=== PATIENT | male | born 1965 | race African-American/Black ===

== ENCOUNTER 2016-10-21 00:41 | Emergency (ER) | payer BC ==
--- NOTE | 2016-10-21 01:35 | ED ---
SOB HPI - General Chief Complaint: Shortness of Breath Stated Complaint: upper respiratory Time Seen by Provider: 10/21/16 01:00 Source: patient Mode of arrival: ambulatory Limitations: no limitations - Related Data Home Medications Medication Instructions Recorded Confirmed No Known Home Medications [No 10/21/16 10/21/16 Known Home Medications] Allergies Allergy/AdvReac Type Severity Reaction Status Date / Time No Known Allergies Allergy Verified 10/21/16 00:54 Review of Systems ROS Statement: Those systems with pertinent positive or pertinent negative responses have been documented in the HPI. ROS Other: All systems not noted in ROS Statement are negative. Past Medical History Past Medical History: Hyperlipidemia History of Any Multi-Drug Resistant Organisms: None Reported Past Surgical History: Hernia Repair Past Psychological History: No Psychological Hx Reported Smoking Status: Never smoker Past Alcohol Use History: Occasional Past Drug Use History: None Reported General Exam Limitations: no limitations Course Vital Signs 10/21/16 00:54 Temperature 98.1 F Pulse Rate 100 Respiratory 20 Rate Blood Pressure 206/118 O2 Sat by Pulse 97 Oximetry Medical Decision Making - Lab Data Result diagrams: 10/21/16 02:10 10/21/16 02:10 Lab Results 10/21/16 10/21/16 10/21/16 Range/Units 02:10 02:10 02:10 WBC 5.5 (3.8-10.6) k/uL RBC 3.60 L (4.30-5.90) m/uL Hgb 11.7 L (13.0-17.5) gm/dL Hct 35.8 L (39.0-53.0) % MCV 99.4 (80.0-100.0) fL MCH 32.5 (25.0-35.0) pg MCHC 32.7 (31.0-37.0) g/dL RDW 13.9 (11.5-15.5) % Plt Count 202 (150-450) k/uL Neutrophils % 46 % Lymphocytes % 40 % Monocytes % 5 % Eosinophils % 4 % Basophils % 2 % Neutrophils # 2.5 (1.3-7.7) k/uL Lymphocytes # 2.2 (1.0-4.8) k/uL Monocytes # 0.3 (0-1.0) k/uL Eosinophils # 0.2 (0-0.7) k/uL Basophils # 0.1 (0-0.2) k/uL PT (9.0-12.0) sec INR (<1.1) APTT (22.0-30.0) sec D-Dimer (<0.60) mg/L FEU Sodium 140 (137-145) mmol/L Potassium 3.9 (3.5-5.1) mmol/L Chloride 110 H (98-107) mmol/L Carbon Dioxide 24 (22-30) mmol/L Anion Gap 6 mmol/L BUN 19 (9-20) mg/dL Creatinine 1.10 (0.66-1.25) mg/dL Est GFR (MDRD) Af Amer >60 (>60 ml/min/1.73 sqM) Est GFR (MDRD) Non-Af >60 (>60 ml/min/1.73 sqM) Glucose 93 (74-99) mg/dL Calcium 8.9 (8.4-10.2) mg/dL Total Bilirubin 0.3 (0.2-1.3) mg/dL AST 46 (17-59) U/L ALT 78 H (21-72) U/L Alkaline Phosphatase 72 (38-126) U/L Total Creatine Kinase 194 H (55-170) U/L CK-MB (CK-2) 1.3 (0.0-2.4) ng/mL CK-MB (CK-2) Rel Index 0.7 Troponin I <0.012 (0.000-0.034) ng/mL Total Protein 6.5 (6.3-8.2) g/dL Albumin 3.4 L (3.5-5.0) g/dL 10/21/16 Range/Units 02:10 WBC (3.8-10.6) k/uL RBC (4.30-5.90) m/uL Hgb (13.0-17.5) gm/dL Hct (39.0-53.0) % MCV (80.0-100.0) fL MCH (25.0-35.0) pg MCHC (31.0-37.0) g/dL RDW (11.5-15.5) % Plt Count (150-450) k/uL Neutrophils % % Lymphocytes % % Monocytes % % Eosinophils % % Basophils % % Neutrophils # (1.3-7.7) k/uL Lymphocytes # (1.0-4.8) k/uL Monocytes # (0-1.0) k/uL Eosinophils # (0-0.7) k/uL Basophils # (0-0.2) k/uL PT 10.6 (9.0-12.0) sec INR 1.0 (<1.1) APTT 22.7 (22.0-30.0) sec D-Dimer 1.20 H (<0.60) mg/L FEU Sodium (137-145) mmol/L Potassium (3.5-5.1) mmol/L Chloride (98-107) mmol/L Carbon Dioxide (22-30) mmol/L Anion Gap mmol/L BUN (9-20) mg/dL Creatinine (0.66-1.25) mg/dL Est GFR (MDRD) Af Amer (>60 ml/min/1.73 sqM) Est GFR (MDRD) Non-Af (>60 ml/min/1.73 sqM) Glucose (74-99) mg/dL Calcium (8.4-10.2) mg/dL Total Bilirubin (0.2-1.3) mg/dL AST (17-59) U/L ALT (21-72) U/L Alkaline Phosphatase (38-126) U/L Total Creatine Kinase (55-170) U/L CK-MB (CK-2) (0.0-2.4) ng/mL CK-MB (CK-2) Rel Index Troponin I (0.000-0.034) ng/mL Total Protein (6.3-8.2) g/dL Albumin (3.5-5.0) g/dL - EKG Data -: EKG Interpreted by [facility] EKG shows normal: sinus rhythm, axis (Normal), intervals (Normal), ST-T waves ( Normal) Rate: normal (Rate 58 bpm) Interpretation: [facility] Disposition Clinical Impression: Pulmonary nodule seen on imaging study Disposition: HOME SELF-CARE Condition: Fair Instructions: Pulmonary Nodules (ED) Referrals: Jose Beckford MD [Primary Care Provider] - 1-2 days Kyle Guzmán MD [STAFF PHYSICIAN] - 1-2 days
[2016-10-21 02:25] LABS: Basophils # (A) 0.1 k/uL (0-0.2); Basophils % (A) 2 %; CH 32.6; Eosinophils # (A) 0.2 k/uL (0-0.7); Eosinophils % (A) 4 %; HCT 35.8 % (39.0-53.0); HDW 2.74; HGB 11.7 gm/dL (13.0-17.5); Luc # (Auto) 0.16; Luc % (Auto) 3; Lymphocytes # (A) 2.2 k/uL (1.0-4.8); Lymphocytes % (A) 40 %; MCH 32.5 pg (25.0-35.0); MCHC 32.7 g/dL (31.0-37.0); MCV 99.4 fL (80.0-100.0); Mean Platelet Volume 7.3; Monocytes # (A) 0.3 k/uL (0-1.0); Monocytes % (A) 5 %; Neutrophils # (A) 2.5 k/uL (1.3-7.7); Neutrophils % (A) 46 %; RDW 13.9 % (11.5-15.5); WBC 5.5 k/uL (3.8-10.6); WBC (Perox) 5.52
[2016-10-21 02:37] LABS: Partial Thromboplastin Time 22.7 sec (22.0-30.0); Prothrombin Time 10.6 sec (9.0-12.0)
[2016-10-21 02:39] LABS: ALT 78 U/L (21-72); AST 46 U/L (17-59); Alkaline Phosphatase 72 U/L (38-126); Anion Gap 6 mmol/L; Blood Urea Nitrogen 19 mg/dL (9-20); Calcium 8.9 mg/dL (8.4-10.2); Carbon Dioxide 24 mmol/L (22-30); Chloride 110 mmol/L (98-107); Glucose 93 mg/dL (74-99); Non-African American GFR(MDRD) >60 (>60 ml/min/1.73 sqM); Potassium 3.9 mmol/L (3.5-5.1); Sodium 140 mmol/L (137-145); Total Bilirubin 0.3 mg/dL (0.2-1.3); Total Protein 6.5 g/dL (6.3-8.2)
[2016-10-21 02:45] LABS: Creatine Kinase 194 U/L (55-170)
[2016-10-21 02:58] LABS: Creatine Kinase MB 1.3 ng/mL (0.0-2.4); Troponin I <0.012 ng/mL (0.000-0.034)
[2016-10-21] MEDS ORDERED: RX INFO: IV CONTRAST WAS GIVEN 1 EACH MISC MISCELLANE PRN (03:14)
--- NOTE | 2016-10-21 03:20 | XR ---
EXAM: XR Chest, 2 Views CLINICAL HISTORY: Reason: difficulty breathing TECHNIQUE: Frontal and lateral views of the chest. COMPARISON: No relevant prior studies available. FINDINGS: Lungs: Bilateral perihilar opacities. Prominent pulmonary vascularity. Pleural space: Unremarkable. No pneumothorax. Heart: Unremarkable. Mediastinum: Mildly prominent mediastinum, may be related to tortuous aorta. Bones/joints: Unremarkable. IMPRESSION: 1. Bilateral perihilar opacities. Correlate clinically for inflammatory/infectious process. 2. Mildly prominent mediastinum, may be related to tortuous aorta. Compare to prior studies if available.
--- NOTE | 2016-10-21 04:21 | CT ---
EXAM: CT Angiography Chest With Intravenous Contrast CLINICAL HISTORY: Reason: Pain TECHNIQUE: Axial computed tomographic angiography images of the chest with intravenous contrast using pulmonary embolism protocol. CTDI is 3.0, 93. 9, 7.0 mGy and DLP is 286.9 mGy-cm This CT exam was performed using one or more of the following dose reduction techniques: automated exposure control, adjustment of the mA and/or kV according to patient size, and/or use of iterative reconstruction technique. MIP reconstructed images were created and reviewed. COMPARISON: No relevant prior studies available. FINDINGS: Pulmonary arteries: Unremarkable. No pulmonary embolism. Aorta: No aortic aneurysm or dissection. Lungs: Multiple small pulmonary nodules, the majority in the right middle lobe measuring up to 7 mm, cannot exclude possibility of neoplastic process. Bilateral peribronchial thickening. Areas of septal thickening can be seen with pulmonary edema or malignant etiology. Minor atelectatic changes. Pleural space: Trace left greater than right pleural effusions. Heart: Mild cardiomegaly. Trace pericardial fluid. Mediastinum: Small hiatal hernia. Mild esophageal wall thickening raising possibility of esophagitis. Bones/joints: No acute fracture. Soft tissues: Unremarkable. Lymph nodes: Small mediastinal and hilar lymph nodes, some of which are calcified. Other findings: IMPRESSION: 1. No evidence of pulmonary embolism or aortic dissection. 2. Multiple small pulmonary nodules, the majority in the right middle lobe measuring up to 7 mm, cannot exclude possibility of neoplastic process. Correlate with history of malignancy and compare to prior studies if available. Followup as indicated per Meli Society recommendations. 3. Bilateral peribronchial thickening. Areas of septal thickening can be seen with pulmonary edema or malignant etiology. 4. Trace left greater than right pleural effusions. 5. Small hiatal hernia. Mild esophageal wall thickening raising possibility of esophagitis. 6. Mild cardiomegaly. Trace pericardial fluid.
[2016-10-21 05:23] VITALS: BP 133/73; PULSE 82; RESP 18; TEMP 98
== END 2016-10-21 05:20 | disposition home or self-care (01) ==
LOC: EC 00:41
DX: R91.8 Other nonspecific abnormal finding of lung field (principal); I51.7 Cardiomegaly; K44.9 Diaphragmatic hernia without obstruction or gangrene
CPT/HCPCS: 99285; 36415; 93005; 85379; 80053; 82550; 82553; 84484; 85025; 85610; 85730; 71020; 71275; Q9967

== ENCOUNTER 2016-10-30 12:13 | Emergency (ER) | payer BC ==
[2016-10-30 12:22] VITALS: RESP 18
[2016-10-30 12:28] LABS: Glucose,Whole Blood 81 mg/dL (75-99)
[2016-10-30] MEDS ORDERED: DIAZEPAM 5 MG/ML 2 ML SYRINGE IVP STA (12:38)
[2016-10-30] MEDS ORDERED: ONDANSETRON 4 MG/2 ML VIAL IVP STA (12:38)
[2016-10-30] MEDS ORDERED: MECLIZINE 12.5 MG TAB PO STA (12:38)
[2016-10-30] MEDS ORDERED: SODIUM CHLORIDE 0.9% 1,000 ML IV ONE (12:38)
--- NOTE | 2016-10-30 12:42 | ED ---
Dizziness HPI - General Chief Complaint: Dizziness Stated Complaint: Dizzy Time Seen by Provider: 10/30/16 12:24 Source: patient Mode of arrival: wheelchair Limitations: no limitations - History of Present Illness Initial Comments: This is a 51-year-old male with history of hyperlipidemia presents emergency department for dizziness. He states that it started this morning he's had multiple episodes. He states that it seems to be worse with turning his head to the right and he feels like the room is spinning. He has some associated nausea with it. He's never had anything like this before. His and mother have noticed that when this happens his eyes are "jumping". He denies any weakness numbness tingling in his extremities. No difficult he was speaking or dysphasia. Denies any associated chest pain or short of breath. No lightheadedness. He is going through a crash diet and has lost 11 pounds and couple of days. He did have a syncopal episode a couple of days ago because of this. He has not been eating very much recently. No other complaints. - Related Data Previous Rx's Medication Instructions Recorded Meclizine [Antivert] 25 mg PO TID PRN #21 tab 10/30/16 Allergies Allergy/AdvReac Type Severity Reaction Status Date / Time No Known Allergies Allergy Verified 10/30/16 12:55 Review of Systems ROS Statement: Those systems with pertinent positive or pertinent negative responses have been documented in the HPI. ROS Other: All systems not noted in ROS Statement are negative. Past Medical History Past Medical History: Hyperlipidemia History of Any Multi-Drug Resistant Organisms: None Reported Past Surgical History: Hernia Repair Past Psychological History: No Psychological Hx Reported Smoking Status: Never smoker Past Alcohol Use History: Occasional Past Drug Use History: None Reported General Exam - General Exam Comments Initial Comments: Constitutional: Awake alert Appears comfortable Head: Normocephalic atraumatic Eyes: no conjunctival injection No scleral icterus EOMI, pupils are 3 mm reactive bilaterally, there is a left beating nystagmus with rightward head movement, the patient has a hints exam consistent with a peripheral cause of vertigo Neck: No JVD Supple Heart: Regular rate rhythm normal S1-S2 no murmurs Lungs: Clear to auscultation bilaterally No wheezing No rales Abdomen: Soft nondistended nontender Extremities: Non edematous DP pulses intact Radial pulses intact Neuro: A&Ox3 cranial nerves II through XII are grossly intact, 5 out of 5 strength in upper and lower extremities bilaterally, no ataxia Psych: Appropriate mood and affect Limitations: no limitations Course Vital Signs 10/30/16 12:19 Temperature 98.5 F Pulse Rate 75 Respiratory 18 Rate Blood Pressure 171/95 O2 Sat by Pulse 99 Oximetry EKG Findings - EKG Comments: EKG Findings:: EKG showing normal sinus rhythm with a rate of 76. No abnormal ST segment changes or T-wave inversions. QTC is 463. Other intervals are normal. No ectopy. Medical Decision Making - Medical Decision Making This is a 51-year-old male presents emergency department for dizziness. He was found on examination to have a peripheral cause of vertigo. Blood work was reviewed and unremarkable. EKG was normal. Patient improved after medications and able to ambulate around the room without difficulty. Will be sent home on Antivert. He has an appointment with his doctor tomorrow to get rechecked. Can return if his symptoms worsen. - Lab Data Result diagrams: 10/30/16 12:48 10/30/16 12:48 Lab Results 10/30/16 10/30/16 10/30/16 Range/Units 12:26 12:48 12:48 WBC 4.2 (3.8-10.6) k/uL RBC 4.17 L (4.30-5.90) m/uL Hgb 13.6 (13.0-17.5) gm/dL Hct 41.4 (39.0-53.0) % MCV 99.3 (80.0-100.0) fL MCH 32.7 (25.0-35.0) pg MCHC 32.9 (31.0-37.0) g/dL RDW 13.5 (11.5-15.5) % Plt Count 233 (150-450) k/uL Sodium 142 (137-145) mmol/L Potassium 3.9 (3.5-5.1) mmol/L Chloride 106 (98-107) mmol/L Carbon Dioxide 27 (22-30) mmol/L Anion Gap 9 mmol/L BUN 17 (9-20) mg/dL Creatinine 0.84 (0.66-1.25) mg/dL Est GFR (MDRD) Af Amer >60 (>60 ml/min/1.73 sqM) Est GFR (MDRD) Non-Af >60 (>60 ml/min/1.73 sqM) Glucose 91 (74-99) mg/dL POC Glucose (mg/dL) 81 (75-99) mg/dL POC Glu [employer] Supervisor ID [address] Calcium 9.3 (8.4-10.2) mg/dL Total Bilirubin 0.7 (0.2-1.3) mg/dL AST 24 (17-59) U/L ALT 50 (21-72) U/L Alkaline Phosphatase 86 (38-126) U/L Total Protein 7.7 (6.3-8.2) g/dL Albumin 4.0 (3.5-5.0) g/dL Disposition Clinical Impression: Vertigo Disposition: HOME SELF-CARE Condition: Stable Instructions: Vertigo (ED), Benign Paroxysmal Positional Vertigo (ED) Prescriptions: Meclizine [Antivert] 25 mg PO TID PRN #21 tab PRN Reason: dizziness Referrals: Jose Beckford MD [Primary Care Provider] - 1-2 days
[2016-10-30 13:12] LABS: Aty Lym Flag Slight; CH 32.7; CHCM 33.1; HCT 41.4 % (39.0-53.0); HDW 2.62; HGB 13.6 gm/dL (13.0-17.5); MCH 32.7 pg (25.0-35.0); MCHC 32.9 g/dL (31.0-37.0); MCV 99.3 fL (80.0-100.0); Mean Platelet Volume 7.4; RBC 4.17 m/uL (4.30-5.90); RDW 13.5 % (11.5-15.5); WBC 4.2 k/uL (3.8-10.6)
[2016-10-30 13:16] LABS: ALT 50 U/L (21-72); AST 24 U/L (17-59); Alkaline Phosphatase 86 U/L (38-126); Anion Gap 9 mmol/L; Blood Urea Nitrogen 17 mg/dL (9-20); Calcium 9.3 mg/dL (8.4-10.2); Carbon Dioxide 27 mmol/L (22-30); Chloride 106 mmol/L (98-107); Glucose 91 mg/dL (74-99); Non-African American GFR(MDRD) >60 (>60 ml/min/1.73 sqM); Potassium 3.9 mmol/L (3.5-5.1); Sodium 142 mmol/L (137-145); Total Bilirubin 0.7 mg/dL (0.2-1.3); Total Protein 7.7 g/dL (6.3-8.2)
[2016-10-30 13:35] LABS: Add Differential Manual Differential
[2016-10-30 13:45] LABS: Nucleated Red Blood Cells 0 /100 WBC (0-0); Total Cells Counted 200
[2016-10-30 13:46] LABS: RBC Morphology Normal
[2016-10-30 14:15] VITALS: BP 159/85; PULSE 73; TEMP 98.6
== END 2016-10-30 13:55 | disposition home or self-care (01) ==
LOC: EC 12:13
DX: R42 Dizziness and giddiness (principal); R11.0 Nausea
CPT/HCPCS: 99284; 96374; 96375; 96361; 36415; 93005; 80053; 85025; J3360; J2405

== ENCOUNTER → 2017-01-09 | Outpatient (CLI) | payer BC ==
[2017-01-09 12:25] LABS: Follicle Stimulating Hormone 32.7 mIU/mL (1.6-9.7)
== END | disposition home or self-care (01) ==
LOC: LABWHC1 08:46
PROVIDERS: ATTEND Internal Medicine Endocrinology, Diabetes & Metabolism
DX: E22.1 Hyperprolactinemia (principal)
CPT/HCPCS: 36415; 82024; 82533; 83001; 83002; 84146; 84439; 84443

== ENCOUNTER → 2017-01-14 | Outpatient (CLI) | payer BC ==
--- NOTE | 2017-01-14 09:03 | MR ---
EXAMINATION TYPE: MR brain wo/w con DATE OF EXAM: 01/14/2017 COMPARISON: NONE HISTORY: Headaches, elevated prolactin level TECHNIQUE: Multiplanar, multisequence images of the brain and brainstem is performed without and with IV contras t, utilizing 18 mL intravenous MultiHance . FINDINGS: Diffusion weighted images demonstrate no evidence of a recent infarct or other diffusion ab normality. There is no worrisome extra-axial fluid collection. The ventricular system and cisternal spaces are normal in size and appearance. The brain volume is age appropriate. There are few scatte red foci of T2 hyperintensity seen throughout the white matter bilaterally. Less than 7 lesions are p resent all measuring 3 mm or smaller in size. Midline structures demonstrate normal morphology. No large sellar mass suggest macroadenomas present . Pituitary stalk shows normal enhancement in the midline. The craniocervical junction appears within normal limits. Post contrast images demonstrate no abnormal enhancement. The dural venous sinuses a ppear patent. The visualized sinuses are clear and the globes are intact. IMPRESSION: Minimal nonspecific white matter changes presumed on basis of product of chronic small ve ssel ischemic change in patient of this age otherwise unremarkable study.
== END | disposition home or self-care (01) ==
LOC: RADMRIMAIN 08:03
PROVIDERS: ATTEND Family Medicine
DX: R90.82 White matter disease, unspecified (principal)
CPT/HCPCS: 70553; A9577

== ENCOUNTER 2020-05-19 14:45 | Emergency (ER) | payer BC ==
[2020-05-19] MEDS ORDERED: ACETAMINOPHEN TAB 500 MG TAB PO STA (15:14)
--- NOTE | 2020-05-19 15:54 | ED ---
Fever HPI - General Chief Complaint: Fever Stated Complaint: Diarrhea/cough/fever Time Seen by Provider: 05/19/20 15:05 Source: patient Mode of arrival: ambulatory Limitations: no limitations - History of Present Illness Initial Comments: Patient is a 54-year-old male presenting to the emergency Department with complaints of cough, congestion and fever for the last 3 days. Patient states his fever has been running from 99-101. He states his cough is dry, little phlegm production, he feels short of breath at times when he is coughing but not at rest. Eyes any chest pain, abdominal pain. He does get intermittent nausea but no vomiting. He's also had diarrhea for the last 3 days. He denies taking any Tylenol or Motrin yet today. He denies being on any medications. He denies history of asthma or COPD, he is a nonsmoker. He has no further complaints at this time. Upon arrival to the ER, his temperature is 99.8, pulse 104, rest of vitals are normal. - Related Data Previous Rx's Medication Instructions Recorded Meclizine [Antivert] 25 mg PO TID PRN #21 tab 10/30/16 Allergies Allergy/AdvReac Type Severity Reaction Status Date / Time No Known Allergies Allergy Verified 05/19/20 14:55 Review of Systems ROS Statement: Those systems with pertinent positive or pertinent negative responses have been documented in the HPI. ROS Other: All systems not noted in ROS Statement are negative. Past Medical History Past Medical History: Hyperlipidemia, Hypertension History of Any Multi-Drug Resistant Organisms: None Reported Past Surgical History: Hernia Repair Past Psychological History: No Psychological Hx Reported Smoking Status: Never smoker Past Alcohol Use History: Occasional Past Drug Use History: None Reported General Exam - General Exam Comments Initial Comments: GENERAL: Patient is well-developed and well-nourished. Patient is nontoxic and in no acute distress. HEAD: Atraumatic, normocephalic. EYES: Pupils equal round and reactive to light, extraocular movements intact, sclera anicteric, conjunctiva are normal. Eyelids were unremarkable. ENT: TMs normal, nares patent, oropharynx clear without exudates. Moist mucous membranes. NECK: Normal range of motion, supple without lymphadenopathy or JVD. LUNGS: Unlabored respirations. Breath sounds clear to auscultation bilaterally and equal. No wheezes rales or rhonchi. HEART: Regular rate and rhythm without murmurs, rubs or gallops. ABDOMEN: Soft, nontender, normoactive bowel sounds. No guarding, no rebound. No masses appreciated. : Deferred MUSCULOSKELETAL: Normal extremities with adequate strength and normal range of motion, no pitting or edema. No clubbing or cyanosis. NEUROLOGICAL: Patient is alert and oriented x 3. Motor and sensory are also intact. Cranial nerves II through XII grossly intact. Symmetrical smile. Normal speech, normal gait. PSYCH: Normal mood, normal affect. SKIN: Warm, Dry, normal turgor, no rashes or lesions noted. Limitations: no limitations Course Vital Signs 05/19/20 05/19/20 14:52 18:02 Temperature 99.8 F H 99.3 F Pulse Rate 104 H 83 Respiratory 20 18 Rate Blood Pressure 134/83 106/72 O2 Sat by Pulse 96 99 Oximetry Medical Decision Making - Medical Decision Making Patient is a 54-year-old male here for cough, low-grade fever and some mild dona rtness of breath over the past 3 days. Patient did arrive mildly febrile 99.8, pulse is 104, 96% on room air. Patient looks very well, in no acute distress. Labs show a normal white count, d-dimer was slightly elevated 0.84, LDH was 1098, CRP is 16, Covid was detected, flu is negative. EKG shows no acute process, chest x-ray shows a developing left mid lower lung acute infiltrate suspected. I did do a CTA of the chest secondary to elevated d-dimer, this shows groundglass opacities of the lower lobes, no evidence for acute PE. Patient has been resting completely ER, his vital signs remained stable, his fever did improve with the Tylenol. Patient is stable for discharge at this time. I did review isolation precautions, self quarantine at home. If symptoms progress, difficulty breathing, shortness of breath, patient needs to return to the ER, he is in agreement with this plan of care. He can continue with the Tylenol at home for body aches or fever. Continue to increase fluid intake. Patient will follow up with his PCP. Case discussed with Dr. Drew. - Lab Data Result diagrams: 05/19/20 15:21 05/19/20 15:21 Lab Results 11/26/20 11/26/20 11/26/20 Range/Units 15:21 15:21 15:21 WBC 3.7 L (3.8-10.6) k/uL RBC 4.52 (4.30-5.90) m/uL Hgb 14.8 (13.0-17.5) gm/dL Hct 42.6 (39.0-53.0) % MCV 94.2 (80.0-100.0) fL MCH 32.7 (25.0-35.0) pg MCHC 34.7 (31.0-37.0) g/dL RDW 12.2 (11.5-15.5) % Plt Count 148 L (150-450) k/uL MPV 7.9 Neutrophils % 66 % Lymphocytes % 27 % Monocytes % 3 % Eosinophils % 1 % Basophils % 1 % Neutrophils # 2.5 (1.3-7.7) k/uL Lymphocytes # 1.0 (1.0-4.8) k/uL Monocytes # 0.1 (0-1.0) k/uL Eosinophils # 0.0 (0-0.7) k/uL Basophils # 0.0 (0-0.2) k/uL PT 10.0 (9.0-12.0) sec INR 1.0 (<1.2) APTT 23.6 (22.0-30.0) sec D-Dimer 0.84 H (<0.60) mg/L FEU Sodium 137 (137-145) mmol/L Potassium 3.6 (3.5-5.1) mmol/L Chloride 103 (98-107) mmol/L Carbon Dioxide 28 (22-30) mmol/L Anion Gap 6 mmol/L BUN 18 (9-20) mg/dL Creatinine 1.15 (0.66-1.25) mg/dL Est GFR (CKD-EPI)AfAm 83 (>60 ml/min/1.73 sqM) Est GFR (CKD-EPI)NonAf 72 (>60 ml/min/1.73 sqM) Glucose 114 H (74-99) mg/dL Plasma Lactic Acid Edmund (0.7-2.0) mmol/L Calcium 8.7 (8.4-10.2) mg/dL Magnesium 2.2 (1.6-2.3) mg/dL Total Bilirubin 0.6 (0.2-1.3) mg/dL AST 44 (17-59) U/L ALT 32 (4-49) U/L Alkaline Phosphatase 78 (38-126) U/L Lactate Dehydrogenase 1098 H (313-618) U/L C-Reactive Protein 16.5 H (<10.0) mg/L Total Protein 7.4 (6.3-8.2) g/dL Albumin 3.7 (3.5-5.0) g/dL Coronavirus (PCR) (Not Detectd) Influenza Type A RNA (Not Detectd) Influenza Type B (PCR) (Not Detectd) 05/19/20 05/19/20 05/19/20 Range/Units 15:21 15:21 15:21 WBC (3.8-10.6) k/uL RBC (4.30-5.90) m/uL Hgb (13.0-17.5) gm/dL Hct (39.0-53.0) % MCV (80.0-100.0) fL MCH (25.0-35.0) pg MCHC (31.0-37.0) g/dL RDW (11.5-15.5) % Plt Count (150-450) k/uL MPV Neutrophils % % Lymphocytes % % Monocytes % % Eosinophils % % Basophils % % Neutrophils # (1.3-7.7) k/uL Lymphocytes # (1.0-4.8) k/uL Monocytes # (0-1.0) k/uL Eosinophils # (0-0.7) k/uL Basophils # (0-0.2) k/uL PT (9.0-12.0) sec INR (<1.2) APTT (22.0-30.0) sec D-Dimer (<0.60) mg/L FEU Sodium (137-145) mmol/L Potassium (3.5-5.1) mmol/L Chloride (98-107) mmol/L Carbon Dioxide (22-30) mmol/L Anion Gap mmol/L BUN (9-20) mg/dL Creatinine (0.66-1.25) mg/dL Est GFR (CKD-EPI)AfAm (>60 ml/min/1.73 sqM) Est GFR (CKD-EPI)NonAf (>60 ml/min/1.73 sqM) Glucose (74-99) mg/dL Plasma Lactic Acid Edmund 1.2 (0.7-2.0) mmol/L Calcium (8.4-10.2) mg/dL Magnesium (1.6-2.3) mg/dL Total Bilirubin (0.2-1.3) mg/dL AST (17-59) U/L ALT (4-49) U/L Alkaline Phosphatase (38-126) U/L Lactate Dehydrogenase (313-618) U/L C-Reactive Protein (<10.0) mg/L Total Protein (6.3-8.2) g/dL Albumin (3.5-5.0) g/dL Coronavirus (PCR) Detected A (Not Detectd) Influenza Type A RNA Not Detected (Not Detectd) Influenza Type B (PCR) Not Detected (Not Detectd) - EKG Data EKG Comments: Normal sinus rhythm, normal ECG, ventricular rate 99, KS interval 156, QT 332. No signs of acute ischemia. Disposition Clinical Impression: COVID-19 virus detected, Cough Disposition: HOME SELF-CARE Condition: Stable Instructions (If sedation given, give patient instructions): Upper Respiratory Infection (ED) Additional Instructions: Please return to the Emergency Department if symptoms worsen or any other concerns. COVID test is positive today. Continue to take Tylenol for fever or body aches. Increase water intake. Follow-up with your PCP in 1-3 days. Is patient prescribed a controlled substance at d/c from ED?: No Referrals: Jose Beckford MD [Primary Care Provider] - 1-2 days
[2020-05-19 16:03] LABS: Basophils % (A) 1 %; Eosinophils % (A) 1 %; HCT 42.6 % (39.0-53.0); HGB 14.8 gm/dL (13.0-17.5); Lymphocytes % (A) 27 %; MCH 32.7 pg (25.0-35.0); MCHC 34.7 g/dL (31.0-37.0); MCV 94.2 fL (80.0-100.0); Mean Platelet Volume 7.9; Monocytes # (A) 0.1 k/uL (0-1.0); Monocytes % (A) 3 %; Neutrophils # (A) 2.5 k/uL (1.3-7.7); Neutrophils % (A) 66 %; Platelet Count 148 k/uL (150-450); RBC 4.52 m/uL (4.30-5.90); RDW 12.2 % (11.5-15.5); WBC 3.7 k/uL (3.8-10.6)
[2020-05-19 16:11] LABS: Albumin 3.7 g/dL (3.5-5.0); C Reactive Protein 16.5 mg/L (<10.0); Calcium 8.7 mg/dL (8.4-10.2); Magnesium 2.2 mg/dL (1.6-2.3); Potassium 3.6 mmol/L (3.5-5.1); Total Bilirubin 0.6 mg/dL (0.2-1.3); Total Protein 7.4 g/dL (6.3-8.2)
[2020-05-19 16:13] LABS: Partial Thromboplastin Time 23.6 sec (22.0-30.0)
[2020-05-19 16:15] LABS: D-Dimer 0.84 mg/L FEU (<0.60)
--- NOTE | 2020-05-19 16:20 | XR ---
EXAMINATION TYPE: XR chest 1V portable DATE OF EXAM: 05/19/2020 COMPARISON: Chest x-ray September 30, 2017 HISTORY: Cough And fever. TECHNIQUE: Single AP portable frontal upright view of the chest is obtained. FINDINGS: There is chronic parenchymal change with new patchy left mid to lower basilar opacity. Rig ht lung is clear. The cardiac silhouette size remains within normal limits. Overlying EKG leads on t he current study. The osseous structures are intact. IMPRESSION: Chronic parenchymal changes with developing patchy new peripheral left mid lower lung ac sorin infiltrate suspected. Progress study advised.
--- NOTE | 2020-05-19 17:17 | CT ---
EXAMINATION TYPE: CT chest angio for PE DATE OF EXAM: 05/19/2020 COMPARISON: Chest x-ray earlier today. CTA chest October 21, 2016. HISTORY: Shortness of breath, Covid+, elevated d-dimer CT DLP: 324.5 mGycm. Automated Exposure Control for Dose Reduction was Utilized. CONTRAST: CTA scan of the thorax is performed with IV Contrast, patient injected with 78ml mL of Isovue 370, pu lmonary embolism protocol. MIP Images are created on CT scanner and reviewed. FINDINGS: LUNGS: Seen better on CT versus x-ray are multifocal groundglass opacities greatest in the lower lobe s bilaterally. No pleural effusion or pneumothorax noted bilaterally. No suspicious masses. MEDIASTINUM: There is satisfactory enhancement of the pulmonary artery and its branches, there is no CT evidence for pulmonary embolism. Satisfactory enhancement of the thoracic aorta without aneurysm or dissection. There are no greater than 1 cm mediastinal lymph nodes. Prominent enlarged right hilar 1.5 x 1.4 cm lymph node image 71. No cardiomegaly or pericardial effusion is seen. OTHER: No additional significant abnormality is seen. IMPRESSION: Multifocal groundglass opacities consistent with history of covid-19 infection. No CTA ev idence for acute pulmonary embolism.
[2020-05-19] MEDS ORDERED: DEXAMETHASONE SOD PHOSPHATE 10 MG/ML 1 ML VIAL IV STA (17:43)
[2020-05-19 18:03] VITALS: BP 106/72; PULSE 83; RESP 18; TEMP 99.3
== END 2020-05-19 18:08 | disposition home or self-care (01) ==
LOC: EC 14:45
DX: U07.1 COVID-19 (principal); R79.89 Other specified abnormal findings of blood chemistry; R91.8 Other nonspecific abnormal finding of lung field
CPT/HCPCS: 36415; 93005; 85379; 80053; 82728; 83605; 83615; 83735; 85025; 85610; 85730; 86140; 87040; 87502; 84145; 87635; 71045; 71275; 99284; 96374; J1100; Q9967

== ENCOUNTER 2021-01-13 15:00 | Emergency (ER) | payer BC ==
[2021-01-13 15:36] VITALS: TEMP 99
--- NOTE | 2021-01-13 16:47 | ED ---
Lower Extremity Injury HPI - General Chief Complaint: Extremity Injury, Lower Stated Complaint: R Leg Pain Time Seen by Provider: 01/13/21 15:58 Source: patient Mode of arrival: ambulatory Limitations: physical limitation - History of Present Illness Initial Comments: Patient is a 55-year-old male presenting to the emergency Department with complaints of pain in the back of his right knee for the past 2 days. Patient states 2 days ago, he was using a push mower and was cutting the grass, he states he probably overdid it. He states later that evening he had cramps in both of his lower calf. The next day he woke up feeling some soreness behind his right knee. He states is more in his lower hamstring area. He denies any previous surgeries or injuries to his right knee. He did not fall. He had no swelling, no redness. He has no history of DVTs. Denies any chest pain or shortness of breath. Has no further complaints at this time. - Related Data Previous Rx's Medication Instructions Recorded Meclizine [Antivert] 25 mg PO TID PRN #21 tab 10/30/16 Allergies Allergy/AdvReac Type Severity Reaction Status Date / Time No Known Allergies Allergy Verified 01/13/21 15:35 Review of Systems ROS Statement: Those systems with pertinent positive or pertinent negative responses have been documented in the HPI. ROS Other: All systems not noted in ROS Statement are negative. Past Medical History Past Medical History: Hyperlipidemia, Hypertension History of Any Multi-Drug Resistant Organisms: None Reported Past Surgical History: Hernia Repair Past Psychological History: No Psychological Hx Reported Smoking Status: Never smoker Past Alcohol Use History: Occasional Past Drug Use History: None Reported General Exam - General Exam Comments Initial Comments: GENERAL: Patient is well-developed and well-nourished. Patient is nontoxic and in no acute distress. HEAD: Atraumatic, normocephalic. EYES: Pupils equal round and reactive to light, extraocular movements intact, sclera anicteric, conjunctiva are normal. Eyelids were unremarkable. LUNGS: Unlabored respirations. Breath sounds clear to auscultation bilaterally and equal. No wheezes rales or rhonchi. HEART: Regular rate and rhythm without murmurs, rubs or gallops. ABDOMEN: Soft, nontender, normoactive bowel sounds. MUSCULOSKELETAL: Patient has some pain with palpation of the lateral distal hamstrings, he does have full active range of motion of his right knee, strength is normal. He is neurovascularly intact. No swelling, no redness. No clubbing or cyanosis. NEUROLOGICAL: Patient is alert and oriented x 3. SKIN: Warm, Dry, normal turgor, no rashes or lesions noted. Limitations: physical limitation Course Vital Signs 01/13/21 15:32 Temperature 99 F Pulse Rate 82 Respiratory 18 Rate Blood Pressure 168/88 O2 Sat by Pulse 99 Oximetry Medical Decision Making - Medical Decision Making Patient is a 55-year-old male here with severe right knee pain for the past 2 days after mowing his lawn. His exam is consistent with some mild hamstring tendinitis or possible mild hyperextension injury. Recommended ice the area, heat. He can take ibuprofen for discomfort. If symptoms persist he can follow up with orthopedics. He is in agreement with this plan of care and is stable for discharge. Case discussed with Dr. Alvarez. Disposition Clinical Impression: Right hamstring muscle strain Disposition: HOME SELF-CARE Condition: Stable Instructions (If sedation given, give patient instructions): Hamstring Injury (ED) Additional Instructions: Please return to the Emergency Department if symptoms worsen or any other concerns. Use heat and/or ice the area, ibuprofen for discomfort. If symptoms persist after one week without improvement, follow up with orthopedics as discussed. Is patient prescribed a controlled substance at d/c from ED?: No Referrals: Jose Beckford MD [Primary Care Provider] - 1-2 days Sanjuanita Sawant DO [Doctor of Osteopathic Medicine] - 1-2 days Time of Disposition: 16:46
[2021-01-13 17:17] VITALS: BP 174/88; PULSE 72; RESP 20
== END 2021-01-13 17:17 | disposition home or self-care (01) ==
LOC: EC 15:00
DX: S76.311A Strain of muscle, fascia and tendon of the posterior muscle group at thigh level, right thigh, initial encounter (principal); I10 Essential (primary) hypertension; E78.5 Hyperlipidemia, unspecified; X50.0XXA Overexertion from strenuous movement or load, initial encounter; Y93.H2 Activity, gardening and landscaping
CPT/HCPCS: 99283

== ENCOUNTER 2021-06-24 05:26 | Inpatient (IN) | payer BC ==
[2021-06-24] MEDS ORDERED: SODIUM CHLORIDE 0.9% 500 ML 500 ML IV ONE (05:58)
[2021-06-24] MEDS ORDERED: MORPHINE SULFATE 4 MG/ML SYRINGE IV STA (05:59)
[2021-06-24] MEDS ORDERED: ASPIRIN 81 MG PO STA (06:14)
[2021-06-24] MEDS ORDERED: NITROGLYCERIN SL TABS 0.4 MG TAB SUBLINGUAL STA (06:14)
--- NOTE | 2021-06-24 06:29 | XR ---
EXAMINATION TYPE: XR chest 1V portable DATE OF EXAM: 06/24/2021 COMPARISON: 05/19/2020 HISTORY: Cough and fever TECHNIQUE: Single view FINDINGS: Heart is normal. Lungs are clear of consolidation. There is some interstitial infiltrate in both lower lobes. There are chest leads. Costophrenic angles are clear. IMPRESSION: Interstitial pneumonia and both lower lobes is mostly new compared to old exam. No heart failure.
[2021-06-24 06:46] LABS: Basophils # (A) 0.1 k/uL (0-0.2); Basophils % (A) 1 %; Eosinophils # (A) 0.2 k/uL (0-0.7); Eosinophils % (A) 2 %; HCT 41.8 % (39.0-53.0); Lymphocytes # (A) 3.5 k/uL (1.0-4.8); Lymphocytes % (A) 39 %; MCH 31.9 pg (25.0-35.0); MCHC 33.5 g/dL (31.0-37.0); MCV 95.3 fL (80.0-100.0); Mean Platelet Volume 7.5; Monocytes # (A) 0.5 k/uL (0-1.0); Monocytes % (A) 5 %; Neutrophils # (A) 4.3 k/uL (1.3-7.7); Neutrophils % (A) 49 %; Platelet Count 280 k/uL (150-450); RBC 4.39 m/uL (4.30-5.90); RDW 12.2 % (11.5-15.5); WBC 8.8 k/uL (3.8-10.6)
[2021-06-24 06:59] LABS: ALT 25 U/L (4-49); AST 29 U/L (17-59); African American GFR (CKD) 88 (>60 ml/min/1.73 sqM); Albumin 3.6 g/dL (3.5-5.0); Alcohol <10 mg/dL; Alkaline Phosphatase 92 U/L (38-126); Amylase 73 U/L (30-110); Anion Gap 10 mmol/L; Blood Urea Nitrogen 20 mg/dL (9-20); Calcium 9.4 mg/dL (8.4-10.2); Carbon Dioxide 26 mmol/L (22-30); Chloride 104 mmol/L (98-107); Glucose 124 mg/dL (74-99); Lipase 49 U/L (23-300); Non-African American GFR(CKD) 76 (>60 ml/min/1.73 sqM); Potassium 3.7 mmol/L (3.5-5.1); Sodium 140 mmol/L (137-145); Total Bilirubin 0.3 mg/dL (0.2-1.3); Total Protein 7.2 g/dL (6.3-8.2)
[2021-06-24 07:01] LABS: Prothrombin Time 10.3 sec (9.0-12.0)
--- NOTE | 2021-06-24 07:01 | CT ---
EXAMINATION TYPE: CT brain wo con DATE OF EXAM: 06/24/2021 COMPARISON: None HISTORY: headache, altered mental status CT DLP: 1099.4 mGycm Automated exposure control for dose reduction was used. Ventricles have normal size. There is no mass effect or midline shift. There is no evidence of intrac ranial hemorrhage. Calvarium is intact. There is no sign of cerebral edema. Skull base is intact. IMPRESSION: Negative unenhanced head CT scan.
[2021-06-24 07:03] LABS: Partial Thromboplastin Time 17.8 sec (22.0-30.0)
[2021-06-24] MEDS ORDERED: HEPARIN SODIUM 1,000 UN/ML (10ML VL) IV ONE (07:43)
[2021-06-24] MEDS ORDERED: HEPARIN SODIUM 1,000 UN/ML (10ML VL) IV PRN (07:43)
--- NOTE | 2021-06-24 07:43 | ED ---
General Adult HPI - General Chief complaint: Altered Mental Status Stated complaint: Fall, poss seizure Time Seen by Provider: 06/24/21 05:30 Source: EMS Mode of arrival: EMS Limitations: no limitations - History of Present Illness Initial comments: 's patient is 56-year-old man brought by ambulance to have evaluation after he had fallen tonight. Patient had been in usual state of health until this evening. He had gone to celebrate [place]. The patient states that he had one beer at home for leaving, and then 2 more beers while he was out. The patient's partner then went to sleep. She heard something and went to check and it appeared he had fallen next the couch. At that point the patient was disoriented and not really able to respond well to her though he was alert. The patient complains of having moderate severity generalized headache. He also is complaining of some mild left sided chest pain. He has some associated nausea. -: minutes(s) Location: head, chest Radiation: non-radiation Quality: dull Consistency: constant Improves with: none Worsens with: none Associated Symptoms: nausea/vomiting, rash - Related Data Previous Rx's Medication Instructions Recorded Meclizine [Antivert] 25 mg PO TID PRN #21 tab 10/30/16 Allergies Allergy/AdvReac Type Severity Reaction Status Date / Time No Known Allergies Allergy Verified 01/13/21 15:35 Review of Systems ROS Statement: Those systems with pertinent positive or pertinent negative responses have been documented in the HPI. ROS Other: All systems not noted in ROS Statement are negative. Constitutional: Denies: fever, chills, weakness Respiratory: Denies: cough, dyspnea Cardiovascular: Reports: chest pain. Denies: palpitations, orthopnea, edema, syncope Gastrointestinal: Reports: nausea, vomiting. Denies: abdominal pain, diarrhea, constipation, hematemesis, melena, hematochezia Genitourinary: Denies: dysuria, hematuria Musculoskeletal: Denies: back pain Skin: Denies: rash Neurological: Reports: headache. Denies: weakness, numbness Past Medical History Past Medical History: Hyperlipidemia, Hypertension History of Any Multi-Drug Resistant Organisms: None Reported Past Surgical History: Hernia Repair Past Psychological History: No Psychological Hx Reported Smoking Status: Never smoker Past Alcohol Use History: Occasional Past Drug Use History: None Reported General Exam Limitations: no limitations General appearance: alert, in no apparent distress Head exam: Present: atraumatic, normocephalic Eye exam: Present: normal appearance. Absent: scleral icterus, conjunctival injection Neck exam: Present: normal inspection, full ROM. Absent: tenderness, meningismus Respiratory exam: Present: normal lung sounds bilaterally. Absent: respiratory distress, wheezes, rales, rhonchi, stridor, chest wall tenderness Cardiovascular Exam: Present: regular rate, normal rhythm, normal heart sounds. Absent: systolic murmur, diastolic murmur, rubs, gallop GI/Abdominal exam: Present: soft, mass. Absent: distended, tenderness, guarding, rebound Extremities exam: Present: normal inspection, normal capillary refill. Absent: pedal edema, calf tenderness Back exam: Present: normal inspection. Absent: CVA tenderness (R), CVA tenderness (L) Neurological exam: Present: alert, oriented X3. Absent: motor sensory deficit Skin exam: Present: warm, dry, intact, normal color. Absent: rash Course Vital Signs 06/24/21 05:28 Temperature 97.6 F Pulse Rate 87 Respiratory 18 Rate Blood Pressure 122/85 O2 Sat by Pulse 98 Oximetry Medical Decision Making - Medical Decision Making Patient's 56-year-old man with a brief syncopal episode, presenting here for evaluation of headache, left chest pain, and nausea/vomiting. The patient's initial ECG does show some subtle changes versus the last one from 2019. There are some mild ST elevations, leads V2, V3, which appear more suggestive of early repolarization or pericarditis. The patient's chest pain is just minimal. Case discussed with Dr. Robb from cardiology who states that he will see the patient. The patient did go for CT to confirm that there was no intracranial injury and then heparin is ordered. - Lab Data Result diagrams: 06/24/21 06:35 06/24/21 06:35 Lab Results 06/24/21 06/24/21 06/24/21 Range/Units 06:35 06:35 06:35 WBC 8.8 (3.8-10.6) k/uL RBC 4.39 (4.30-5.90) m/uL Hgb 14.0 (13.0-17.5) gm/dL Hct 41.8 (39.0-53.0) % MCV 95.3 (80.0-100.0) fL MCH 31.9 (25.0-35.0) pg MCHC 33.5 (31.0-37.0) g/dL RDW 12.2 (11.5-15.5) % Plt Count 280 (150-450) k/uL MPV 7.5 Neutrophils % 49 % Lymphocytes % 39 % Monocytes % 5 % Eosinophils % 2 % Basophils % 1 % Neutrophils # 4.3 (1.3-7.7) k/uL Lymphocytes # 3.5 (1.0-4.8) k/uL Monocytes # 0.5 (0-1.0) k/uL Eosinophils # 0.2 (0-0.7) k/uL Basophils # 0.1 (0-0.2) k/uL PT 10.3 (9.0-12.0) sec INR 1.0 (<1.2) APTT 17.8 L (22.0-30.0) sec Sodium 140 (137-145) mmol/L Potassium 3.7 (3.5-5.1) mmol/L Chloride 104 (98-107) mmol/L Carbon Dioxide 26 (22-30) mmol/L Anion Gap 10 mmol/L BUN 20 (9-20) mg/dL Creatinine 1.08 (0.66-1.25) mg/dL Est GFR (CKD-EPI)AfAm 88 (>60 ml/min/1.73 sqM) Est GFR (CKD-EPI)NonAf 76 (>60 ml/min/1.73 sqM) Glucose 124 H (74-99) mg/dL Calcium 9.4 (8.4-10.2) mg/dL Total Bilirubin 0.3 (0.2-1.3) mg/dL AST 29 (17-59) U/L ALT 25 (4-49) U/L Alkaline Phosphatase 92 (38-126) U/L Troponin I (0.000-0.034) ng/mL Total Protein 7.2 (6.3-8.2) g/dL Albumin 3.6 (3.5-5.0) g/dL Amylase 73 (30-110) U/L Lipase 49 (23-300) U/L Serum Alcohol <10 mg/dL 06/24/21 Range/Units 06:35 WBC (3.8-10.6) k/uL RBC (4.30-5.90) m/uL Hgb (13.0-17.5) gm/dL Hct (39.0-53.0) % MCV (80.0-100.0) fL MCH (25.0-35.0) pg MCHC (31.0-37.0) g/dL RDW (11.5-15.5) % Plt Count (150-450) k/uL MPV Neutrophils % % Lymphocytes % % Monocytes % % Eosinophils % % Basophils % % Neutrophils # (1.3-7.7) k/uL Lymphocytes # (1.0-4.8) k/uL Monocytes # (0-1.0) k/uL Eosinophils # (0-0.7) k/uL Basophils # (0-0.2) k/uL PT (9.0-12.0) sec INR (<1.2) APTT (22.0-30.0) sec Sodium (137-145) mmol/L Potassium (3.5-5.1) mmol/L Chloride (98-107) mmol/L Carbon Dioxide (22-30) mmol/L Anion Gap mmol/L BUN (9-20) mg/dL Creatinine (0.66-1.25) mg/dL Est GFR (CKD-EPI)AfAm (>60 ml/min/1.73 sqM) Est GFR (CKD-EPI)NonAf (>60 ml/min/1.73 sqM) Glucose (74-99) mg/dL Calcium (8.4-10.2) mg/dL Total Bilirubin (0.2-1.3) mg/dL AST (17-59) U/L ALT (4-49) U/L Alkaline Phosphatase (38-126) U/L Troponin I 0.080 H* (0.000-0.034) ng/mL Total Protein (6.3-8.2) g/dL Albumin (3.5-5.0) g/dL Amylase (30-110) U/L Lipase (23-300) U/L Serum Alcohol mg/dL - EKG Data -: EKG Interpreted by Ar EKG shows normal: sinus rhythm, axis, intervals (Normal), QRS complexes (Normal) Rate: normal (Rate 77 bpm) When compared to previous EKG there are: other Interpretation: other (ST changes suggestive of early repolarization or pericarditis which are not present on the patient's comparison ECG) Disposition Clinical Impression: Syncope, Chest pain Disposition: ADMITTED IP TO THIS HOSP Condition: Fair Referrals: Jose Beckford MD [Primary Care Provider] - 1-2 days
[2021-06-24] MEDS ORDERED: HYDROmorphone 0.5 MG/0.5 ML SYRINGE IVP STA (07:44)
[2021-06-24] MEDS: HEPARIN SOD,PORK IN 0.45% NACL 25,000 UNIT in 0.45% NACL 1 250ML.BAG IV SCH (11:30)
--- NOTE | 2021-06-24 13:39 | P.CRDCN ---
History of Present Illness History of present illness: HISTORY OF PRESENTING ILLNESS This is a pleasant 56-year-old with past medical history significant for hyperlipidemia and mild family history of coronary artery disease. He has never been seen by nursing unit manager before however states he did have some sort of diagnosis of heart failure after he had a cyst removed on his back and apparently received too much IV fluids during the procedure. He states overall he has been doing well and normally denies any chest pain, pressure, shortness breath. He does not smoke, very rare alcohol and no illicit drugs. Family history of some coronary artery disease on his mother's side. He states he was feeling well and had 1-2 beers for and then came home and was watching TV. The next thing he remembered was waking up on the floor. Family member was in the house and heard a loud thump and found patient unresponsive on the floor somewhat foaming at the mouth. No seizure activity, no loss of bladder or bowel. He apparently was somewhat more confused and then started coming back to while he was brought to the emergency department. He was still having some degree of chest discomfort and nausea which was new for him. He den ies any similar sensation in the past. He was found to have minimally elevated troponins 1 and therefore heparin drip was started. He has had no further ectopy. EKG shows early repolarization with minimal ST elevation however no reciprocal changes. Currently he is completely chest pain-free. REVIEW OF SYSTEMS At the time of my exam: CONSTITUTIONAL: Denies fever or chills. CARDIOVASCULAR: + chest pain, no shortness of breath, orthopnea, PND or palpitations. RESPIRATORY: Denies cough. GASTROINTESTINAL: Denies abdominal pain, diarrhea, constipation, nausea or vomiting. MUSCULOSKELETAL: Denies myalgias. NEUROLOGIC: Denies numbness, tingling or weakness. ENDOCRINE: Denies fatigue, weight change, polydipsia or polyurina. GENITOURINARY: Denies burning, hematuria or urgency with micturation. HEMATOLOGIC: Denies history of anemia or bleeding. PHYSICAL EXAMINATION Vital signs reviewed. CONSTITUTIONAL: No apparent distress. HEENT: Head is normocephalic. Pupils are equal, round. Sclerae anicteric. Mucous membranes of the mouth are moist. No JVD. No carotid bruit. CHEST EXAMINATION: Lungs are clear to auscultation. No chest wall tenderness is noted on palpation or with deep breathing. HEART EXAMINATION: Regular rate and rhythm. S1, S2 heard. No murmurs, gallops or rub. ABDOMEN: Soft, nontender. Positive bowel sounds. EXTREMITIES: 2+ peripheral pulses, no lower extremity edema and no calf tenderness. NEUROLOGIC EXAMINATION: Patient is awake, alert and oriented x3. ASSESSMENT 1. Syncope while seated concerning for cardiogenic source 2. Minimally elevated troponins 3. Chest pain rule out acute coronary syndrome 4. history of hyperlipidemia 5. Family history of coronary artery disease 6. Minimal diffuse ST elevations without reciprocal changes. May be early repol vs pericarditis however not typical pericarditis symptoms. PLAN Patient with some symptoms concerning for acute coronary syndrome with minimally elevated troponins. He was having some chest pain with additional syncope. Continue to monitor on telemetry. Currently chest pain-free. Trend troponins. Check 2-D echo. Continue heparin drip for now. Pending echo results and trend of troponins patient may need heart catheterization versus stress testing before discharge. Telemetry. Past Medical History Past Medical History: Hyperlipidemia, Hypertension History of Any Multi-Drug Resistant Organisms: None Reported Past Surgical History: Hernia Repair Past Psychological History: No Psychological Hx Reported Smoking Status: Never smoker Past Alcohol Use History: Occasional Past Drug Use History: None Reported Medications and Allergies Home Medications Medication Instructions Recorded Confirmed Type No Known Home Medications 06/24/21 06/24/21 History Allergies Allergy/AdvReac Type Severity Reaction Status Date / Time No Known Allergies Allergy Verified 06/24/21 08:24 Physical Exam Vitals: Vital Signs Temp Pulse Pulse Resp BP BP Pulse Ox 06/24/21 11:54 97.8 F 71 18 133/64 97 06/24/21 05:28 97.6 F 87 18 122/85 98 Intake and Output 06/23/21 06/24/21 06/24/21 22:59 06:59 14:59 Other: Weight 99.79 kg 99.79 kg Results 06/24/21 06:35 06/24/21 06:35 Cardiac Enzymes 06/24/21 06/24/21 Range/Units 06:35 06:35 AST 29 (17-59) U/L Troponin I 0.080 H* (0.000-0.034) ng/mL Coagulation 06/24/21 Range/Units 06:35 PT 10.3 (9.0-12.0) sec APTT 17.8 L (22.0-30.0) sec CBC 06/24/21 Range/Units 06:35 WBC 8.8 (3.8-10.6) k/uL RBC 4.39 (4.30-5.90) m/uL Hgb 14.0 (13.0-17.5) gm/dL Hct 41.8 (39.0-53.0) % Plt Count 280 (150-450) k/uL Comprehensive Metabolic Panel 06/24/21 Range/Units 06:35 Sodium 140 (137-145) mmol/L Potassium 3.7 (3.5-5.1) mmol/L Chloride 104 (98-107) mmol/L Carbon Dioxide 26 (22-30) mmol/L BUN 20 (9-20) mg/dL Creatinine 1.08 (0.66-1.25) mg/dL Glucose 124 H (74-99) mg/dL Calcium 9.4 (8.4-10.2) mg/dL AST 29 (17-59) U/L ALT 25 (4-49) U/L Alkaline Phosphatase 92 (38-126) U/L Total Protein 7.2 (6.3-8.2) g/dL Albumin 3.6 (3.5-5.0) g/dL Current Medications Generic Name Dose Route Start Last Admin Trade Name Freq PRN Reason Stop Dose Admin Heparin Sodium (Porcine) 0 unit 06/24/21 07:43 Heparin Sodium 1,000 Un/Ml (10ml Vl) IV PER PROTOCOL PRN Low PTT Protocol Heparin Sodium/Sodium Chloride 250 mls @ 10 mls/hr 06/24/21 07:45 06/24/21 11:30 25,000 unit/ Sodium Chloride IV 10.021 units/kg/hr .Q24H SCOTT 10 mls/hr Administration Protocol 10.021 UNITS/KG/HR Intake and Output 06/23/21 06/24/21 06/24/21 22:59 06:59 14:59 Other: Weight 99.79 kg 99.79 kg Patient Weight 06/25/21 06:59 Weight 99.79 kg 06/24/21 06:35 06/24/21 06:35
--- NOTE | 2021-06-24 18:31 | HP ---
HISTORY AND PHYSICAL CHIEF COMPLAINT: Syncope and possible seizure with chest pain. HISTORY OF PRESENT ILLNESS: This is the first known admission for this 56-year-old male. He apparently went out for the evening, had 1 or 2 drinks, came home and was lying on the couch when he apparently fell off. His girlfriend heard hit the floor. When she went out it appeared that he may have been having a seizure. EMS was summoned and he was brought in. He does not remember any of this. He does not know if he was incontinent. He vaguely remembers having chest pain and a feeling of indigestion and thinks he was slightly clammy. In the emergency room troponin was elevated. REVIEW OF SYSTEMS: He does not remember anything else. At the present time he is comfortable without chest pain. He has a slight posterior headache. Past medical history, family history and personal and social histories are otherwise unremarkable and noncontributory. PHYSICAL EXAMINATION: Vital signs are normal. Head, ears, eyes, nose, mouth and throat are normal. Carotids are normal. Chest is clear. Cardiac exam is normal sinus rhythm and there are no murmurs or extra sounds. Abdomen is soft, nontender without visceromegaly or masses. Bowel sounds are present and extremities are normal. Neurologically he is intact. He is admitted to the hospital with diagnoses: 1. Syncope. 2. Chest pain. 3. Elevated troponin. 4. Possible seizure disorder. PLAN: 1. Bedrest. 2. IV fluids. 3. Serial EKGs and cardiac enzymes. 4. Cardiology consult. MMMARIMAR / CHRISTELN: [id number] /
[2021-06-24 22:47] LABS: Amorphous Sediment,Urine Rare /hpf; Appearance,Urine Cloudy (Clear); Bilirubin,Urine Negative (Negative); Blood,Urine Negative (Negative); Color,Urine Yellow; Glucose,Urine (UA) Negative (Negative); Ketones,Urine Negative (Negative); Leukocyte Esterase,Urine Small (Negative); Mucus,Urine Few /hpf; Nitrite,Urine Negative (Negative); PH, Urine 6.5 (5.0-8.0); Protein,Urine Trace (Negative); Squamous Epithelial Cell,Urine 1 /hpf (0-4); WBC,Urine 13 /hpf (0-5)
[2021-06-24 22:49] LABS: Amphetamine Screen,Urine Not Detected (NotDetected); Barbiturate Screen,Urine Not Detected (NotDetected); Benzodiazepines Screen,Urine Not Detected (NotDetected); Cocaine Screen,Urine Not Detected (NotDetected); Methadone Screen, Urine Not Detected (NotDetected); Opiate Screen,Urine Detected (NotDetected); Oxycodone Screen, Urine Not Detected (NotDetected); Phencyclidine Screen,Urine Not Detected (NotDetected); Tricyclic Antidepressant,Urine Not Detected (NotDetected); Urn Cannabinoid Scrn Not Detected (NotDetected)
[2021-06-24] MEDS: ACETAMINOPHEN TAB 325 MG TAB PO PRN (23:15)
[2021-06-24 23:34] LABS: HDL Cholesterol 51.1 mg/dL (40.00-60.00); Triglycerides 41.2 mg/dL (0.00-149.00)
[2021-06-24 23:52] LABS: Chol/HDL Ratio 4.09 Ratio
[2021-06-25 02:35] LABS: Basophils # (A) 0.1 k/uL (0-0.2); Basophils % (A) 1 %; Eosinophils # (A) 0.1 k/uL (0-0.7); Eosinophils % (A) 2 %; HCT 39.2 % (39.0-53.0); HGB 12.8 gm/dL (13.0-17.5); Lymphocytes # (A) 3.7 k/uL (1.0-4.8); Lymphocytes % (A) 41 %; MCH 32.4 pg (25.0-35.0); MCHC 32.5 g/dL (31.0-37.0); MCV 99.6 fL (80.0-100.0); Mean Platelet Volume 7.5; Monocytes # (A) 0.4 k/uL (0-1.0); Monocytes % (A) 5 %; Neutrophils # (A) 4.4 k/uL (1.3-7.7); Neutrophils % (A) 50 %; Platelet Count 265 k/uL (150-450); RBC 3.94 m/uL (4.30-5.90); RDW 12.9 % (11.5-15.5); WBC 8.9 k/uL (3.8-10.6)
[2021-06-25] MEDS: HEPARIN SOD,PORK IN 0.45% NACL 25,000 UNIT in 0.45% NACL 1 250ML.BAG IV SCH (05:35)
[2021-06-25] MEDS ORDERED: ASPIRIN 81 MG PO SCH (09:00)
--- NOTE | 2021-06-25 09:25 | P.PN ---
Subjective HISTORY OF PRESENTING ILLNESS This is a pleasant 56-year-old with past medical history significant for hyperlipidemia and mild family history of coronary artery disease. He has never been seen by diamond grinder before however states he did have some sort of diagnosis of heart failure after he had a cyst removed on his back and apparently received too much IV fluids during the procedure. He states overall he has been doing well and normally denies any chest pain, pressure, shortness breath. He does not smoke, very rare alcohol and no illicit drugs. Family history of some coronary artery disease on his mother's side. He states he was feeling well and had 1-2 beers for [place] and then came home and was watching TV. The next thing he remembered was waking up on the floor. Family member was in the house and heard a loud thump and found patient unresponsive on the floor somewhat foaming at the mouth. No seizure activity, no loss of bladder or bowel. He apparently was somewhat more confused and then started coming back to while he was brought to the emergency department. He was still having some degree of chest discomfort and nausea which was new for him. He denies any similar sensation in the past. He was found to have minimally elevated troponins 1 and therefore heparin drip was started. He has had no further ectopy. EKG shows early repolarization with minimal ST elevation however no reciprocal changes. Currently he is completely chest pain-free. 1/2 Patient seen and examined. Patient's troponin came down with second troponin. Denies any chest pain or pressure, no shortness breath. No events noted on telemetry. Denies any lightheadedness. PHYSICAL EXAMINATION Vital signs reviewed. CONSTITUTIONAL: No apparent distress. HEENT: Head is normocephalic. Pupils are equal, round. Sclerae anicteric. Mucous membranes of the mouth are moist. No JVD. No carotid bruit. CHEST EXAMINATION: Lungs are clear to auscultation. No chest wall tenderness is noted on palpation or with deep breathing. HEART EXAMINATION: Regular rate and rhythm. S1, S2 heard. No murmurs, gallops or rub. ABDOMEN: Soft, nontender. Positive bowel sounds. EXTREMITIES: 2+ peripheral pulses, no lower extremity edema and no calf te nderness. NEUROLOGIC EXAMINATION: Patient is awake, alert and oriented x3. ASSESSMENT 1. Syncope while seated concerning for cardiogenic source, however patient does not recall episode and may have hit his head with some sort of concussion and amnesia 2. Minimally elevated troponins 3. Chest pain rule out acute coronary syndrome 4. history of hyperlipidemia 5. Family history of coronary artery disease 6. Minimal diffuse ST elevations without reciprocal changes. May be early repol vs pericarditis however not typical pericarditis symptoms. PLAN Patient's troponins have been flat and lowering. Does not appear to be obvious acute coronary syndrome without any significant angina-type symptoms. Given lower likelihood of obstructive disease we will perform stress echo tomorrow as well as echocardiogram and if both are normal patient may be discharged home with a 30 day event monitor. Continue heparin drip for now. Objective - Vital Signs Vital signs: Vital Signs Temp 98.1 F 06/25/21 08:48 Pulse 71 06/25/21 08:48 Resp 16 06/25/21 08:48 BP 150/89 06/25/21 08:48 Pulse Ox 100 06/25/21 08:48 Intake & Output 06/24/21 06/25/21 06/25/21 18:59 06:59 18:59 Intake Total 198.597 Output Total 600 Balance -401.403 Weight 99.79 kg Intake: Intake, IV Titration 198.597 Amount Heparin Sod,Pork in 0.45% 198.597 NaCl 25,000 unit In 0.45 % NaCl 1 250ml.bag @ 10. 021 UNITS/KG/HR 10 mls/hr IV .Q24H [facility] Rx#: [id number] Output: Urine 600 Other: Voiding Method Toilet Toilet Urinal Urinal - Labs CBC & Chem 7: 06/25/21 02:21 06/24/21 06:35 Labs: Abnormal Lab Results - Last 24 Hours (Table) 06/24/21 06/24/21 06/24/21 Range/Units 14:13 14:13 19:41 RBC (4.30-5.90) m/uL Hgb (13.0-17.5) gm/dL APTT 37.1 H (22.0-30.0) sec Troponin I 0.059 H* (0.000-0.034) ng/mL Cholesterol 209.00 H (0.00-200.00) mg/dL LDL Cholesterol Direct 139.00 H (0.00-129.00) mg/dL Urine Protein (Negative) Ur Leukocyte Esterase (Negative) Urine WBC (0-5) /hpf Amorphous Sediment (None) /hpf Urine Mucus (None) /hpf Urine Opiates Screen (NotDetected) 06/24/21 06/24/21 06/25/21 Range/Units 22:13 22:13 02:21 RBC 3.94 L (4.30-5.90) m/uL Hgb 12.8 L (13.0-17.5) gm/dL APTT (22.0-30.0) sec Troponin I (0.000-0.034) ng/mL Cholesterol (0.00-200.00) mg/dL LDL Cholesterol Direct (0.00-129.00) mg/dL Urine Protein Trace H (Negative) Ur Leukocyte Esterase Small H (Negative) Urine WBC 13 H (0-5) /hpf Amorphous Sediment Rare H (None) /hpf Urine Mucus Few H (None) /hpf Urine Opiates Screen Detected H (NotDetected) 06/25/21 Range/Units 02:21 RBC (4.30-5.90) m/uL Hgb (13.0-17.5) gm/dL APTT 52.9 H (22.0-30.0) sec Troponin I (0.000-0.034) ng/mL Cholesterol (0.00-200.00) mg/dL LDL Cholesterol Direct (0.00-129.00) mg/dL Urine Protein (Negative) Ur Leukocyte Esterase (Negative) Urine WBC (0-5) /hpf Amorphous Sediment (None) /hpf Urine Mucus (None) /hpf Urine Opiates Screen (NotDetected)
[2021-06-25] MEDS ORDERED: CHLORTHALIDONE 25 MG TAB PO SCH (13:00)
[2021-06-25] MEDS ORDERED: amLODIPine 5 MG TAB PO SCH (13:15)
--- NOTE | 2021-06-25 13:23 | PN ---
PROGRESS NOTE DATE OF SERVICE: 06/25/2021 CHIEF COMPLAINT: Chest pain and elevated troponin with syncopal episode. HISTORY OF PRESENT ILLNESS: The gentleman is feeling fine. He has had no further chest pain. It is noted that his blood pressure was elevated. He had three positive troponins. He is going for further studies tomorrow. PHYSICAL EXAMINATION: Chest is clear. Cardiac exam is normal. The abdomen is soft and nontender. IMPRESSION: 1. Syncope. 2. Chest pain. 3. Hypertension. 4. ST-elevation myocardial infarction. PLAN: 1. Chlorthalidone 25 mg once a day and Norvasc 5 mg once a day. 2. Stress study tomorrow. This gentleman probably should undergo cardiac catheterization eventually, given his history of syncope. 3. Elevated troponins and slightly abnormal electrocardiogram. MMODL / IJN: [id number] /
[2021-06-25 13:28] LABS: INR 1.1 (<1.2); Prothrombin Time 11.9 sec (9.0-12.0)
[2021-06-25 20:13] LABS: Glucose,Whole Blood 150 mg/dL (75-99)
[2021-06-25] MEDS: ACETAMINOPHEN TAB 325 MG TAB PO PRN (21:20)
[2021-06-25] MEDS: ENALAPRILAT 1.25 MG/ML 1 ML VIAL IVP PRN (22:01)
[2021-06-26] MEDS ORDERED: HYDROcodone/APAP 5-325MG 1 EACH TAB PO PRN (03:21)
[2021-06-26 03:33] VITALS: RESP 14; TEMP 98
--- NOTE | 2021-06-26 03:57 | CT ---
EXAMINATION TYPE: CT brain wo con DATE OF EXAM: 06/26/2021 COMPARISON: 06/24/2021 HISTORY: headache CT DLP: 1087.4 mGycm Automated exposure control for dose reduction was used. There is high attenuation at the perimesencephalic cistern related to acute subarachnoid hemorrhage. This is surrounding the anterior aspect of the brainstem and also to some extent the lateral aspect o f the shea. There is some enlargement of the temporal horns of the lateral ventricles suggestive of s ome obstructive hydrocephalus. There is high attenuation along the basilar artery suspicious for basi lar artery bleeding aneurysm. There is slight decreased navarro-white matter differentiation compared to last CT scan. Calvarium is intact. There is no evidence of cerebral parenchymal hemorrhage. IMPRESSION: There is evidence of acute subarachnoid hemorrhage at the skull base around the brainstem and suspici ous for bleeding aneurysm of the basilar tip. Hemorrhage appears new compared to exam 2 days ago. Thi s exam was discussed with Dr. Soares at 4:00 AM.
[2021-06-26 04:30] VITALS: PULSE 83
[2021-06-26] MEDS ORDERED: hydrALAZINE HCL 25 MG TAB PO SCH (04:30)
[2021-06-26] MEDS: ENALAPRILAT 1.25 MG/ML 1 ML VIAL IVP PRN (04:31)
[2021-06-26 05:13] LABS: Glucose,Whole Blood 133 mg/dL (75-99)
[2021-06-26] MEDS ORDERED: HYDROmorphone 0.5 MG/0.5 ML SYRINGE IVP STA (05:38)
[2021-06-26] MEDS ORDERED: hydrALAZINE HCL 50 MG TAB PO STA (06:10)
[2021-06-26 07:00] VITALS: BP 189/97
--- NOTE | 2021-06-27 18:45 | DS ---
DISCHARGE SUMMARY CHIEF COMPLAINT: Chest pain. HISTORY OF PRESENT ILLNESS AND PHYSICAL EXAMINATION: Details of this man's history and physical can be found in the initial workup. LABORATORY STUDIES: While in the hospital he had laboratory studies, details of which can be found in the laboratory section of his chart. COURSE IN THE HOSPITAL: After admission he was placed on bedrest, started on intravenous fluids. He did have an elevated troponin and he was started on heparin. He was seen by Cardiology and it was planned that he would stay in until Saturday and undergo a stress study. However, in the middle of the night of his discharged his blood pressure spiked and he developed an acute and severe headache. CT without contrast demonstrated a subarachnoid hemorrhage and a possible small aneurysm near the mid brain. Arrangements were made for him to be transferred to [facility]. FINAL DIAGNOSIS: 1. NSTEMI. 2. Intracranial bleed. 3. Probable intracranial or cerebral aneurysm. 4. Malignant hypertension. OPERATIONS: None. CONSULTATION: Cardiology. He is not improved. MMODL / IJN: [id number] /
== END 2021-06-26 07:30 | DRG 280 ==
LOC: EC 05:26 → 3SCARD 10:43
PROVIDERS: ADMIT Family Medicine; ATTEND Family Medicine
DX: I21.4 Non-ST elevation (NSTEMI) myocardial infarction (principal); S06.6X9A Traumatic subarachnoid hemorrhage with loss of consciousness of unspecified duration, initial encounter; I67.1 Cerebral aneurysm, nonruptured; E78.5 Hyperlipidemia, unspecified; Z20.822 Contact with and (suspected) exposure to COVID-19; I11.0 Hypertensive heart disease with heart failure; R55 Syncope and collapse; I50.9 Heart failure, unspecified; W18.30XA Fall on same level, unspecified, initial encounter; Z82.49 Family history of ischemic heart disease and other diseases of the circulatory system; Z87.19 Personal history of other diseases of the digestive system
CPT/HCPCS: 36415; 70450; 71045; 80053; 80061; 80306; 80320; 81001; 82150; 83690; 83721; 83880; 84484; 85025; 85610; 85730; 87635; 93005; 96361; 96374; 96375; 99285

== ENCOUNTER → 2021-07-17 | Outpatient (CLI) | payer BC ==
--- NOTE | 2021-07-18 08:04 | CT ---
EXAMINATION TYPE: CT angio head neck DATE OF EXAM: 07/17/2021 COMPARISON: None HISTORY: h/o brain bleed CT DLP: 489.1 mGycm CONTRAST: Performed with IV Contrast, patient injected with 65 mL of Isovue 370. Combination Contrast CTA cervical carotids and [place] CTA cervical carotids with 3-D recons truction Contrast CTA of the cervical carotids was performed 3-D reconstruction imaging obtained at a separate workstation. Right carotid system: Mild plaque is seen of the right common carotid artery. There is mild plaque a lso noted at the carotid bulb and proximal ICA. No significant diameter reduction. ECA is patent. Right vertebral artery appears unremarkable. Left carotid system: Mild plaque is seen of the left common carotid artery. There is mild plaque als o noted at the carotid bulb and proximal ICA. No significant diameter reduction. ECA is patent. Lef t vertebral artery appears unremarkable. IMPRESSION: 1. No significant diameter reduction to account for the patient's symptoms. CTA [place] with 3-D reconstruction Contrast CTA of the [place] was performed 3-D reconstruction imaging obtained at a separate workstation. Vertebrobasilar system as well as intracranial portions of the internal carotid arteries and their ma josiah tributaries are patent. 3 mm tip of the basilar artery aneurysm is difficult to exclude. No addit ional sizable aneurysms are present. Please note MRI provides greater sensitivity and specificity. V isualized brain appears grossly unremarkable. IMPRESSION: 1. 3 mm tip of the basilar artery aneurysm is difficult to exclude. NASCET criteria was used in interpretation of this exam?
== END | disposition home or self-care (01) ==
LOC: RADCTMAIN 14:53
PROVIDERS: ATTEND Family Medicine
DX: I65.23 Occlusion and stenosis of bilateral carotid arteries (principal)
CPT/HCPCS: 70496; 70498; Q9967

== ENCOUNTER 2021-08-26 11:00 | Observation (INO) | payer BC ==
[2021-08-26] MEDS ORDERED: SODIUM CHLORIDE 0.9% 2,000 ML IV STA (11:48)
[2021-08-26] MEDS ORDERED: ONDANSETRON 4 MG/2 ML VIAL IVP STA (11:49)
--- NOTE | 2021-08-26 12:05 | ED ---
Nausea/Vomiting/Diarrhea HPI - General Chief complaint: Nausea/Vomiting/Diarrhea Stated complaint: nausea, flu like symptoms Time Seen by Provider: 08/26/21 11:28 Source: patient Mode of arrival: wheelchair Limitations: no limitations - History of Present Illness Initial comments: Patient is a 56-year-old male who presents to the emergency department with a chief complaint of vomiting, diarrhea, and lightheadedness. Patient reports that his symptoms started this morning. He reports a brief period of abdominal pain after vomiting that has since resolved. Patient is currently nauseous. He is currently nauseous. Patient reports several episodes of diarrhea and 2 episodes of vomiting, both nonbloody. He states that after the vomiting and diarrhea he felt very lightheaded, sweaty, dehydrated, and had chills. He states he is feeling tingling in his fingertips bilaterally. Of note, patient was evaluated and the [facility] on 06/24/21 when he was diagnosed with a NSTEMI and a subarachnoid hemorrhage. Patient was transferred [facility] and reports that the bleed was fixed surgically. Patient was unable to go cardiac stress test due to transfer to [facility] for brain bleed. Patient currently denies fever, shortness of breath, chest pain, abdominal pain, blood in the urine, and burning with urination. - Related Data Home Medications Medication Instructions Recorded Confirmed No Known Home Medications 06/24/21 06/24/21 Allergies Allergy/AdvReac Type Severity Reaction Status Date / Time No Known Allergies Allergy Verified 08/26/21 11:08 Review of Systems ROS Statement: Those systems with pertinent positive or pertinent negative responses have been documented in the HPI. ROS Other: All systems not noted in ROS Statement are negative. Past Medical History Past Medical History: Hyperlipidemia, Hypertension History of Any Multi-Drug Resistant Organisms: None Reported Past Surgical History: Hernia Repair Past Psychological History: No Psychological Hx Reported Smoking Status: Never smoker Past Alcohol Use History: Occasional Past Drug Use History: None Reported General Exam Limitations: no limitations General appearance: alert, in no apparent distress Head exam: Present: atraumatic, normocephalic, normal inspection Eye exam: Present: normal appearance, PERRL, EOMI. Absent: scleral icterus, conjunctival injection, periorbital swelling ENT exam: Present: normal exam, mucous membranes moist Respiratory exam: Present: normal lung sounds bilaterally. Absent: respiratory distress, wheezes, rales, rhonchi, stridor Cardiovascular Exam: Present: normal rhythm, tachycardia GI/Abdominal exam: Present: soft, normal bowel sounds. Absent: distended, tend erness, guarding, rebound, rigid Neurological exam: Present: alert, oriented X3, CN II-XII intact Psychiatric exam: Present: normal affect, normal mood Skin exam: Present: warm, dry, intact, normal color. Absent: rash Course Vital Signs 08/26/21 08/26/21 08/26/21 11:08 12:13 14:00 Temperature 97.8 F Pulse Rate 123 H 125 H 130 H Respiratory 18 18 Rate Blood Pressure 112/74 160/107 O2 Sat by Pulse 99 98 Oximetry 08/26/21 14:44 Temperature Pulse Rate 120 H Respiratory Rate Blood Pressure 111/84 O2 Sat by Pulse Oximetry Medical Decision Making - Medical Decision Making This is a 56-year-old male who presents with vomiting, diarrhea, and lightheadedness. Thorough history and examination was performed. Patient is afebrile. He is tachycardic at 123. EKG reveals sinus tachycardia with nonspecific T-wave abnormality. Labs are relatively unremarkable. Troponin is within normal limits. COVID-19 influenza A/B are not detected. Patient given a fluid bolus and Zofran. On reevaluation patient reports that he feels very well. Patient was given another fluid bolus and tachycardia continued, 129 on reevaluation. Case discussed with patient's primary care pro vider Dr. Beckford. Patient will be admitted to him for observation. Results discussed with patient and patient's . They verbalize understanding and are agreeable to plan. Dr. Heaton is my attending. - Lab Data Result diagrams: 08/26/21 12:12 08/26/21 12:12 Lab Results 08/26/21 08/26/21 08/26/21 Range/Units 12:00 12:12 12:12 WBC 10.2 (3.8-10.6) k/uL RBC 4.98 (4.30-5.90) m/uL Hgb 16.5 D (13.0-17.5) gm/dL Hct 49.1 (39.0-53.0) % MCV 98.7 (80.0-100.0) fL MCH 33.1 (25.0-35.0) pg MCHC 33.5 (31.0-37.0) g/dL RDW 13.2 (11.5-15.5) % Plt Count 238 (150-450) k/uL MPV 7.7 Neutrophils % 88 % Lymphocytes % 6 % Monocytes % 4 % Eosinophils % 1 % Basophils % 0 % Neutrophils # 8.9 H (1.3-7.7) k/uL Lymphocytes # 0.6 L (1.0-4.8) k/uL Monocytes # 0.4 (0-1.0) k/uL Eosinophils # 0.1 (0-0.7) k/uL Basophils # 0.0 (0-0.2) k/uL Sodium 142 (137-145) mmol/L Potassium 5.1 (3.5-5.1) mmol/L Chloride 109 H (98-107) mmol/L Carbon Dioxide 21 L (22-30) mmol/L Anion Gap 12 mmol/L BUN 22 H (9-20) mg/dL Creatinine 1.22 (0.66-1.25) mg/dL Est GFR (CKD-EPI)AfAm 76 (>60 ml/min/1.73 sqM) Est GFR (CKD-EPI)NonAf 66 (>60 ml/min/1.73 sqM) Glucose 116 H (74-99) mg/dL Calcium 10.0 (8.4-10.2) mg/dL Magnesium 2.0 (1.6-2.3) mg/dL Total Bilirubin 1.2 (0.2-1.3) mg/dL AST 48 (17-59) U/L ALT 43 (4-49) U/L Alkaline Phosphatase 110 (38-126) U/L Troponin I (0.000-0.034) ng/mL Total Protein 8.8 H (6.3-8.2) g/dL Albumin 4.6 (3.5-5.0) g/dL Lipase 56 (23-300) U/L Urine Color Urine Appearance (Clear) Urine pH (5.0-8.0) Ur Specific [place] (1.001-1.035) Urine Protein (Negative) Urine Glucose (UA) (Negative) Urine Ketones (Negative) Urine Blood (Negative) Urine Nitrite (Negative) Urine Bilirubin (Negative) Urine Urobilinogen (<2.0) mg/dL Ur Leukocyte Esterase (Negative) Urine RBC (0-5) /hpf Urine WBC (0-5) /hpf Ur Squamous Epith Cells (0-4) /hpf Amorphous Sediment (None) /hpf Urine Bacteria (None) /hpf Hyaline Casts (0-2) /lpf Urine Mucus (None) /hpf Influenza Type A (PCR) Not Detected (Not Detectd) Influenza Type B (PCR) Not Detected (Not Detectd) RSV (PCR) Not Detected (Not Detectd) SARS-CoV-2 (PCR) Not Detected (Not Detectd) 08/26/21 08/26/21 Range/Units 12:12 13:59 WBC (3.8-10.6) k/uL RBC (4.30-5.90) m/uL Hgb (13.0-17.5) gm/dL Hct (39.0-53.0) % MCV (80.0-100.0) fL MCH (25.0-35.0) pg MCHC (31.0-37.0) g/dL RDW (11.5-15.5) % Plt Count (150-450) k/uL MPV Neutrophils % % Lymphocytes % % Monocytes % % Eosinophils % % Basophils % % Neutrophils # (1.3-7.7) k/uL Lymphocytes # (1.0-4.8) k/uL Monocytes # (0-1.0) k/uL Eosinophils # (0-0.7) k/uL Basophils # (0-0.2) k/uL Sodium (137-145) mmol/L Potassium (3.5-5.1) mmol/L Chloride (98-107) mmol/L Carbon Dioxide (22-30) mmol/L Anion Gap mmol/L BUN (9-20) mg/dL Creatinine (0.66-1.25) mg/dL Est GFR (CKD-EPI)AfAm (>60 ml/min/1.73 sqM) Est GFR (CKD-EPI)NonAf (>60 ml/min/1.73 sqM) Glucose (74-99) mg/dL Calcium (8.4-10.2) mg/dL Magnesium (1.6-2.3) mg/dL Total Bilirubin (0.2-1.3) mg/dL AST (17-59) U/L ALT (4-49) U/L Alkaline Phosphatase (38-126) U/L Troponin I 0.015 (0.000-0.034) ng/mL Total Protein (6.3-8.2) g/dL Albumin (3.5-5.0) g/dL Lipase (23-300) U/L Urine Color Yellow Urine Appearance Clear (Clear) Urine pH 6.5 (5.0-8.0) Ur Specific [place] 1.017 (1.001-1.035) Urine Protein Trace H (Negative) Urine Glucose (UA) Negative (Negative) Urine Ketones Negative (Negative) Urine Blood Negative (Negative) Urine Nitrite Positive (Negative) Urine Bilirubin Negative (Negative) Urine Urobilinogen <2.0 (<2.0) mg/dL Ur Leukocyte Esterase Negative (Negative) Urine RBC 3 (0-5) /hpf Urine WBC 5 (0-5) /hpf Ur Squamous Epith Cells 1 (0-4) /hpf Amorphous Sediment Few H (None) /hpf Urine Bacteria Few H (None) /hpf Hyaline Casts 4 H (0-2) /lpf Urine Mucus Few H (None) /hpf Influenza Type A (PCR) (Not Detectd) Influenza Type B (PCR) (Not Detectd) RSV (PCR) (Not Detectd) SARS-CoV-2 (PCR) (Not Detectd) - EKG Data EKG Comments: EKG taken at 12:01 Sinus tachycardia, nonspecific T-wave abnormality Ventricular rate 121 [place] interval 148 QRS duration 89 QTC 410 Disposition Clinical Impression: Vomiting, Diarrhea, Chills, Tachycardia, Nausea Disposition: ADMITTED IP TO THIS [facility] Condition: Good Referrals: Jose Beckford MD [Primary Care Provider] - 1-2 days Decision Time: 15:54
[2021-08-26 12:29] LABS: Basophils % (A) 0 %; Eosinophils # (A) 0.1 k/uL (0-0.7); Eosinophils % (A) 1 %; HCT 49.1 % (39.0-53.0); Lymphocytes # (A) 0.6 k/uL (1.0-4.8); Lymphocytes % (A) 6 %; MCH 33.1 pg (25.0-35.0); MCHC 33.5 g/dL (31.0-37.0); MCV 98.7 fL (80.0-100.0); Mean Platelet Volume 7.7; Monocytes # (A) 0.4 k/uL (0-1.0); Monocytes % (A) 4 %; Neutrophils # (A) 8.9 k/uL (1.3-7.7); Neutrophils % (A) 88 %; Platelet Count 238 k/uL (150-450); RBC 4.98 m/uL (4.30-5.90); RDW 13.2 % (11.5-15.5); WBC 10.2 k/uL (3.8-10.6)
[2021-08-26 12:47] LABS: Albumin 4.6 g/dL (3.5-5.0); Potassium 5.1 mmol/L (3.5-5.1); Total Bilirubin 1.2 mg/dL (0.2-1.3); Total Protein 8.8 g/dL (6.3-8.2)
[2021-08-26 12:48] LABS: HGB 16.5 gm/dL (13.0-17.5)
[2021-08-26 12:51] LABS: Influenza A Not Detected (Not Detectd); Influenza B Not Detected (Not Detectd)
[2021-08-26 14:18] LABS: Amorphous Sediment,Urine Few /hpf; Appearance,Urine Clear (Clear); Bacteria,Urine Few /hpf; Bilirubin,Urine Negative (Negative); Blood,Urine Negative (Negative); Color,Urine Yellow; Glucose,Urine (UA) Negative (Negative); Hyaline Casts,Urine 4 /lpf (0-2); Ketones,Urine Negative (Negative); Leukocyte Esterase,Urine Negative (Negative); Mucus,Urine Few /hpf; Nitrite,Urine Positive (Negative); PH, Urine 6.5 (5.0-8.0); Protein,Urine Trace (Negative); RBC,Urine 3 /hpf (0-5); Specific Gravity,Urine 1.017 (1.001-1.035); Squamous Epithelial Cell,Urine 1 /hpf (0-4); Urobilinogen,Urine <2.0 mg/dL (<2.0); WBC,Urine 5 /hpf (0-5)
[2021-08-26] MEDS ORDERED: SODIUM CHLORIDE 0.9% 1,000 ML IV STA (14:29)
[2021-08-26] MEDS ORDERED: NALOXONE 0.4 MG/ML 1 ML VIAL IV PRN (15:54)
[2021-08-26] MEDS ORDERED: ONDANSETRON 4 MG/2 ML VIAL IVP PRN (15:54)
[2021-08-26] MEDS ORDERED: ACETAMINOPHEN TAB 325 MG TAB PO PRN (17:22)
[2021-08-26] MEDS: SODIUM CHLORIDE 0.9% 1,000 ML IV SCH (17:55)
[2021-08-27] MEDS: SODIUM CHLORIDE 0.9% 1,000 ML IV SCH ×4 (00:02→21:23)
[2021-08-27] MEDS: lisinopriL 20 MG TAB PO SCH (08:07)
[2021-08-28] MEDS: SODIUM CHLORIDE 0.9% 1,000 ML IV SCH ×2 (02:25→08:47)
[2021-08-28 03:22] VITALS: RESP 18
[2021-08-28 07:51] VITALS: TEMP 98.6
[2021-08-28] MEDS: lisinopriL 20 MG TAB PO SCH (08:47)
[2021-08-28 09:43] VITALS: BP 167/99; PULSE 83
--- NOTE | 2021-08-28 21:23 | HP ---
HISTORY AND PHYSICAL CHIEF COMPLAINT: Intractable nausea, vomiting, diarrhea and hypokalemia. HISTORY OF PRESENT ILLNESS: This is another admission for this 56-year-old white male. He has been doing fairly well, and efforts are being made to keep his blood pressure down. He had a TIA several months ago, for which he was seen at [facility]. Initially he was found to have an aneurysm and this was treated. He has had no neurologic problems since. He started to have crampy abdominal pain with nausea, vomiting, diarrhea, and he came to the emergency room. He is admitted with dehydration and hypokalemia. REVIEW OF SYSTEMS: He denies any headaches, neurologic problems, hematemesis, melena, hematochezia, urinary complaints, etc. Past medical history, family history, and personal and social histories are unremarkable and noncontributory otherwise. PHYSICAL EXAMINATION: Blood pressure is 145/92 with a pulse of 90, respirations of 36, and he is afebrile. In general he appeared to be dehydrated. Head, ears, eyes, nose, mouth and throat were normal. Mucous membranes are slightly dry. Chest is clear. Cardiac exam demonstrated sinus tachycardia. The abdomen is slightly protuberant, soft. He had some generalized mild tenderness. Bowel sounds are hyperactive. Extremities are normal. Neurologically he is intact. IMPRESSION: 1. Viral gastroenteritis. 2. Dehydration. 3. Hypokalemia. 4. Hypertension. PLAN: 1. Bedrest. 2. IV fluids. 3. N.p.o. 4. Antiemetics and antidiarrheals. MMODL / IJN: [id number] /
--- NOTE | 2021-08-28 21:32 | PN ---
PROGRESS NOTE DATE OF SERVICE: 08/27/2021 CHIEF COMPLAINT: Dehydration, hyperkalemia and gastroenteritis. HISTORY OF PRESENT ILLNESS: This gentleman is doing a little bit better. He still has crampy pain. The vomiting has stopped. He is still having some diarrhea. PHYSICAL EXAMINATION: Chest is clear. Cardiac exam is normal. Abdomen is soft, nontender. Vital signs are normal. IMPRESSION: Viral gastroenteritis with dehydration and hypokalemia. PLAN: Slowly advance diet. He will probably be able to go home tomorrow. MMODL / IJN: [id number] /
--- NOTE | 2021-08-28 21:56 | DS ---
DISCHARGE SUMMARY CHIEF COMPLAINT: Dehydration, gastroenteritis. HISTORY OF PRESENT ILLNESS AND PHYSICAL EXAMINATION: Details of this man's history and physical can be found in the initial workup. LABORATORY STUDIES: While he was in the hospital he had laboratory studies, details of which can be found in the laboratory section of his chart. COURSE IN THE HOSPITAL: After admission he was placed on bedrest, started on intravenous fluids, and he was rehydrated. Electrolytes were returned to normal. He was advanced to a regular diet. He was doing well and it was felt that he could go home on the August 28. He will go home on his usual activity, diet and medication. He will be seen in the office in a day or two. FINAL DIAGNOSIS: 1. Viral gastroenteritis. 2. Intractable nausea, vomiting, diarrhea. 3. Hypertension. OPERATIONS: None. CONSULTATIONS: None. He is improved. JEANIE / CLINT: [id number] /
== END 2021-08-28 11:09 | disposition home or self-care (01) ==
LOC: EC 11:00 → 6NMEDSUR 15:50
PROVIDERS: ADMIT Family Medicine; ATTEND Family Medicine
DX: A08.4 Viral intestinal infection, unspecified (principal); E86.0 Dehydration; E87.6 Hypokalemia; I10 Essential (primary) hypertension; R00.0 Tachycardia, unspecified; E78.5 Hyperlipidemia, unspecified; I25.2 Old myocardial infarction; Z20.822 Contact with and (suspected) exposure to COVID-19; Z86.73 Personal history of transient ischemic attack (TIA), and cerebral infarction without residual deficits
CPT/HCPCS: 96361 ×3; 96374; 99284; 36415; 93005; 80053; 83690; 83735; 84484; 85025; 81001; 87040; 87636; G0378 ×3; J2405

== ENCOUNTER 2024-12-05 11:35 | Emergency (ER) | payer BC, OTHER ==
[2024-12-05 12:56] VITALS: RESP 18
[2024-12-05] MEDS: ACETAMINOPHEN TAB 500 MG TAB PO STA (13:00)
[2024-12-05] MEDS: CYCLOBENZAPRINE 10 MG TAB PO STA (13:01)
--- NOTE | 2024-12-05 13:16 | ED ---
General Adult HPI - General Chief complaint: Extremity Injury, Upper Stated complaint: L arm pain Time Seen by Provider: 12/05/24 12:30 Source: patient, RN notes reviewed, old records reviewed Mode of arrival: ambulatory Limitations: no limitations - History of Present Illness Initial comments: Patient is a 59-year-old male who presents emergency department complaining of left shoulder pain and arm pain. Is been present for approximately 1 week. States is worse with movement. Has a history of a lipoma removal over the posterior left shoulder over the scapula. States that the pain seems to originate near the outside of the scar and radiates down the back of the left arm towards the elbow. Worse with movement of the shoulder and left arm. Also worse with letting his left arm free hang. Denies any obvious edema of the left arm. Denies any numbness of the left arm. Pain is worse with movement and certain positions and improves with rest. Patient does work 2 jobs, both are very physical and involve heavy lifting. 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 Presents for further evaluation at this time. Past medical his tory includes hypertension hyperlipidemia. - Related Data Home Medications Medication Instructions Recorded Confirmed Atorvastatin [Lipitor] 80 mg PO HS 08/26/21 08/26/21 Cholecalciferol [Vitamin D3 (125 125 mcg PO DAILY 08/26/21 08/26/21 Mcg = 5000 Iu)] lisinopriL 40 mg PO DAILY 08/26/21 08/26/21 Previous Rx's Medication Instructions Recorded Cyclobenzaprine [Flexeril] 10 mg PO TID PRN 7 Days #21 tab 12/05/24 Allergies Allergy/AdvReac Type Severity Reaction Status Date / Time No Known Allergies Allergy Verified 12/05/24 11:41 Review of Systems ROS Statement: Those systems with pertinent positive or pertinent negative responses have been documented in the HPI. Review of Systems: CONST: Denies fever EYES: Denies blurry vision ENT: Denies nasal congestion C/V: Denies Chest pain RESP: Denies shortness of breath GI: Denies abdominal pain : Denies dysuria SKIN: Denies rash. MSK: Endorses left shoulder pain and arm pain NEURO: Denies headache ROS Other: All systems not noted in ROS Statement are negative. Past Medical History Past Medical History: Hyperlipidemia, Hypertension History of Any Multi-Drug Resistant Organisms: None Reported Past Surgical History: Hernia Repair Past Anesthesia/Blood Transfusion Reactions: No Reported Reaction Past Psychological History: No Psychological Hx Reported Smoking Status: Never smoker Past Alcohol Use History: Occasional Past Drug Use History: None Reported General Exam - General Exam Comments Initial Comments: General: Appears in no acute distress. HEAD: Normal with no signs of head trauma. EYES: EOMI ENT: Hearing grossly intact RESPIRATORY: Clear breath sounds bilaterally. No wheezes, rales, or rhonchi. C/V: Regular rate and rhythm. S1 and S2 auscultatedperipheral pulses 2+ and intact throughout ABD: Nondistended EXT: Normal range of motion of the left shoulder but pain with movement, seems to improve the pain with certain positions. Tenderness radiating along the triceps muscle as well as the trapezius muscle on the left. Worse with passive range of motion as well. Neurovascular intact. SKIN: No rashes or lesions observed on exposed skin. NEURO: Alert and oriented x 4. No focal deficits. Neurologically intact throughout. Limitations: no limitations Course Vital Signs 12/05/24 12/05/24 12/05/24 11:39 12:55 15:20 Temperature 98 F 97 F L Pulse Rate 83 73 72 Respiratory 20 18 18 Rate Blood Pressure 174/102 154/88 140/85 O2 Sat by Pulse 99 100 98 Oximetry Medical Decision Making - Medical Decision Making Was pt. sent in by a medical professional or institution ([employer], HIGH SCHOOL COACH, urgent care, hospital, or longterm...) When possible be specific @ -No Did you speak to anyone other than the patient for history (EMS, parent, family, police, friend...)? What history was obtained from this source @ -No Did you review nursing and triage notes (agree or disagree)? Why? @ -I reviewed and agree with nursing and triage notes Were old charts reviewed (outside hosp., previous admission, EMS record, old EKG, old radiological studies, urgent care reports/EKG's, longterm records)? Report findings @ -Reviewed EKG from August 2022 with no significant acute change when compared with today's EKG. Differential Diagnosis (chest pain, altered mental status, abdominal pain women, abdominal pain men, vaginal bleeding, weakness, fever, dyspnea, syncope, headache, dizziness, GI bleed, back pain, seizure, CVA, palpatations, mental health, musculoskeletal)? @ -Differential Musculoskeletal Muscular strain, contusion, ligament sprain, fracture, arthritis, septic arthritis, bursitis, cellulitis, muscle spasm, nerve compression, DVT, arterial occlusion, herpes zoster, electrolyte abnormality, tumor.... This is not meant to be in all inclusive list EKG interpreted by me (3pts min.). @ -As above X-rays interpreted by me (1pt min.). @ -Chest x-ray, shoulder x-ray negative for any obvious acute process. Arthritis is present. CT interpreted by me (1pt min.). @ -None done U/S interpreted by me (1pt. min.). @ -Left upper extremity ultrasound negative for DVT. What testing was considered but not performed or refused? (CT, X-rays, U/S, labs)? Why? @ -None What meds were considered but not given or refused? Why? @ -None Did you discuss the management of the patient with other professionals (professionals i.e. , PA, HIGH SCHOOL COACH, lab, RT, psych nurse, social service coordinator, case therapist, teacher, state patrol officer, case monitor)? Give summary @ -No Was smoking cessation discussed for >3mins.? @ -No Was critical care preformed (if so, how long)? @ -No Were there social determinants of health that impacted care today? How? (Homelessness, low income, unemployed, alcoholism, drug addiction, transportation, low edu. Level, literacy, decrease access to med. care, nursing home, rehab)? @ -No Was there de-escalation of care discussed even if they declined (Discuss DNR or withdrawal of care, Hospice)? DNR status @ -No What co-morbidities impacted this encounter? (DM, HTN, Smoking, COPD, CAD, Cancer, CVA, ARF, Chemo, Hep., AIDS, mental health diagnosis, sleep apnea, morbid obesity)? @ -None Was patient admitted / discharged? Hospital course, mention meds given and route, prescriptions, significant lab abnormalities, going to OR and other pertinent info. @ -Patient presents with 7 days of left shoulder pain. Seems to involve the rotator cuff of the left shoulder. Seems to be musculoskeletal left shoulder pain. Screening EKG was obtained in triage and was unremarkable with no obvious acute changes. Discussed with patient he will receive oral Flexeril, as well as Tylenol we will obtain an ultrasound of the left upper extremity as well as shoulder x-ray. He was in agreement this plan. Vitals are within acceptable limits.EKG showed no signs of acute ischemia. Imaging returned negative. Patient will be given a sling as well as prescription for Flexeril. Discussed with him that he likely has a shoulder sprain. Given a work note for 1 night off work. Recommend follow-up with PCP and orthopedics if pain persist. He was in agreement this plan. I instructed the patient to follow up with their PCP in the next 1-3 days. I explained that the patient should return to the emergency department if they experience any worsening symptoms. Strict return precautions were discussed with the patient. The patient expressed understanding of these instructions. I answered all questions that the patient had. The patient was discharged home in [good] condition with their prescriptions and follow up information. Undiagnosed new problem with uncertain prognosis? @ -No Drug Therapy requiring intensive monitoring for toxicity (Heparin, Nitro, Insulin, Cardizem)? @ -No Were any procedures done? @ -No Diagnosis/symptom? @ -Left shoulder sprain Acute, or Chronic, or Acute on Chronic? @ -Acute Uncomplicated (without systemic symptoms) or Complicated (systemic symptoms)? @ -Uncomplicated Side effects of treatment? @ -None Exacerbation, Progression, or Severe Exacerbation] @ -No Poses a threat to life or bodily function? @ -Unlikely at this time - EKG Data -: EKG Interpreted by Me EKG Comments: 12-lead Electrocardiogram Interpretation Note EKG was reviewed and interpreted by myself. 12-lead ECG performed at 1146 is interpreted by me as revealing normal sinus rhythm at a rate of 75 beats per minute. [place] is normal. [place] interval is 169 ms, QRS duration is 94 ms, QTc is 403 ms. Chronic Q waves in the inferior leads.. There were no ST or T wave abnormalities to suggest myocardial ischemia or injury. R wave progression across the precordium was satisfactory. By my interpretation this EKG is non- diagnostic for acute ischemia. Compared with EKG from August 2021 with no significant acute change. Disposition Clinical Impression: Sprain of left shoulder Disposition: HOME SELF-CARE Condition: Good Instructions (If sedation given, give patient instructions): Shoulder Sprain (ED) Prescriptions: Cyclobenzaprine [Flexeril] 10 mg PO TID PRN 7 Days #21 tab PRN Reason: Pain Is patient prescribed a controlled substance at d/c from ED?: No Referrals: Jose Beckford MD [Primary Care Provider] - 1-2 days Surendra Fagan MD [STAFF PHYSICIAN] - 1-2 days Time of Disposition: 15:00
--- NOTE | 2024-12-05 13:30 | XR ---
EXAMINATION TYPE: XR chest 1V DATE OF EXAM: 12/05/2024 1:20 PM COMPARISON: Chest radiographs from 06/24/2021 CLINICAL INDICATION: Male, 59 years old with history of left shoulder pain; [facility] TECHNIQUE: XR chest 1V Frontal view of the chest. FINDINGS: Lungs/Pleura: There is no evidence of pleural effusion, focal consolidation, or pneumothorax. Pulmonary vascularity: Unremarkable. Heart/mediastinum: Cardiomediastinal silhouette is unremarkable. Musculoskeletal: No acute osseous pathology. Other findings: None IMPRESSION: No acute cardiopulmonary disease/process. [facility], , 12/05/2024 1:28 PM
--- NOTE | 2024-12-05 13:31 | XR ---
EXAMINATION TYPE: XR shoulder complete LT DATE OF EXAM: 12/05/2024 1:20 PM COMPARISON: None CLINICAL INDICATION: Male, 59 years old with history of left shoulder pain; [facility], pain TECHNIQUE: XR shoulder complete LT; examined in AP, internally rotated and scapular Y projections. FINDINGS: No evidence of acute osseous pathology, joint dislocation, or soft tissue swelling. The remaining po rtions of the visualized chest are unremarkable. Degeneration changes of the acromion, distal clavic le with osteophyte formation. There is osteophyte formation of the glenoid and humeral head. There is joint space narrowing of glenohumeral joint. IMPRESSION: 1. No acute osseous pathology. 2. Mild shoulder osteoarthrosis. [facility], , 12/05/2024 1:28 PM
--- NOTE | 2024-12-05 14:39 | US ---
EXAMINATION TYPE: US venous doppler duplex UE LT DATE OF EXAM: 12/05/2024 COMPARISON: NONE CLINICAL INDICATION: Male, 59 years old with history of left arm pain. eval for dvt; left arm pulling sensation TECHNIQUE: Grayscale, color Doppler and spectral Doppler imaging of the upper extremity. SIDE PERFORMED: left VESSELS IMAGED: IJV Subclavian Vein Axilla Vein Brachial Vein(s) Radial Paired Veins Ulnar Paired Veins Cephalic Vein* Basilic Vein* (*superficial vessels) FINDINGS: Left Arm: No evidence of DVT as visualized Grayscale, color doppler, spectral doppler imaging performed of the deep veins of the upper extremiti es. IMPRESSION: No evidence for DVT. [facility], , 12/05/2024 2:36 PM
[2024-12-05 15:26] VITALS: BP 140/85; PULSE 72; TEMP 97
== END 2024-12-05 15:20 | disposition home or self-care (01) ==
LOC: EC 11:35
DX: S43.402A Unspecified sprain of left shoulder joint, initial encounter (principal); E78.5 Hyperlipidemia, unspecified; I10 Essential (primary) hypertension; X58.XXXA Exposure to other specified factors, initial encounter
CPT/HCPCS: 71045; 93005; 99285